=== PATIENT | male | born 1950 | race Caucasian/White ===

== ENCOUNTER 2017-10-03 10:00 | Inpatient (IN) ==
[2017-10-03] MEDS ORDERED: Ipratropium/Albuterol Neb 3 ML IH ONE (10:19)
[2017-10-03] MEDS ORDERED: methylPREDNISolone 125 MG/2 ML VIAL IVP ONE (10:19)
[2017-10-03 10:41] LABS: Basophils % 0.3 %; Eosinophils # 1.4 K/mcL (0.0-0.6); Hematocrit 40.2 % (37.5-50.1); Hemoglobin 12.6 g/dL (12.9-16.9); Immature Granulocytes % 0.3 % (0-4); Lymphocytes # 0.7 K/mcL (0.6-4.6); Lymphocytes % 6.8 %; Mean Corpuscular HGB Conc 31.3 g/dL (31.6-35.5); Mean Corpuscular Hemoglobin 26.6 pg (28.0-33.3); Mean Platelet Volume 10.9 fL (9.4-12.4); Monocytes # 0.7 K/mcL (0.0-1.3); Monocytes % 6.6 %; Neutrophils # 7.8 K/mcL (1.6-8.9); Platelet Count 232 K/mcL (140-400); Red Blood Count 4.73 M/mcL (4.19-5.50); Red Cell Distribution Width 14.4 % (11.5-14.5)
--- NOTE | 2017-10-03 10:41 | Emergency Department Note ---
Disposition Clinical Impression: Acute exacerbation of chronic obstructive airways disease Disposition: Admitted As Inpatient Condition: Fair Referrals: Addy Gómez DO [Partnered Physician] - Forms: ED Satisfaction Letter Time of Disposition: 11:39 [facility] - General Chief Complaint: ED Shortness of Breath/Dyspnea Stated Complaint: NADIA Time Seen by Provider: 10/03/17 10:02 Source: patient Mode of arrival: ambulatory Limitations: no limitations Nursing Notes Reviewed: Yes Vital Signs Reviewed: Yes - History of Present Illness 67-year-old male presented to the ED with difficulty in breathing. Patient states he does have a history of COPD he is always on 2 L of oxygen has never had B and abated he is chronically on 5 mg of steroid. And recently finished a 3 day course of azithromycin. He is currently being worked up by his bakery demonstrator and is sent for an MRI here soon to evaluate for a pulmonary nodule. He sees Dr. Ross. He says this feels like a COPD exacerbation. He has had them before. He states the shortness of breath started last night. He states he has not had any fevers production. Does have a hard time catching his breath. He is not having chest pain, headache, blurry vision, abdominal pain, pain with urination, changes in bowel movements, pain going down the arms or legs or any numbness. Patient otherwise having no complaints. He states he has no leg swelling he has never had any blood clots states he has not had any long car rides or long plane rides or recent hormone use or malignancies. Patient states he did use his nebulizers at home which did help for a little bit only about 30 minutes and he had a hard time breathing in. He said normally lasts a little bit longer. - Related Data Allergies Allergy/AdvReac Type Severity Reaction Status Date / Time atorvastatin [From Lipitor] AdvReac See Verified 10/03/17 11:20 Comments Review of Systems: 10 point review of systems done and negative unless otherwise stated in history of present illness. All systems ED: reviewed and negative except as stated. Review of Systems: As Per HPI Past Medical History - Past Medical History Attestation: Yes The following information was validated with the patient. Medical history: Reports: COPD, GERD, hyperlipidemia, hypertension, RA, other Surgical history: Reports: orthopedic, other, other (Hemorrhoidectomy) Psychiatric history: Reports: no psych history - Social History Smoking Status: Former smoker Smokeless Tobacco Status: No Alcohol use: Reports: occasionally Drug use: Reports: none Physical Exam - General Limitations: no limitations General appearance: alert, in no apparent distress - Head Head exam: atraumatic, normocephalic, normal inspection - Eye Eye exam: Present: normal appearance, PERRL, EOMI - ENT ENT exam: normal exam, normal oropharynx, mucous membranes moist - Neck Neck exam: Present: normal inspection, full ROM, trachea midline - Chest Chest inspection: Present: normal inspection, symmetric chest wall rise - Respiratory Respiratory exam: Present: wheezes (Bilaterally in upper and lower.). Absent: respiratory distress, stridor, accessory muscle use, prolonged expiratory phase - Cardiovascular Cardiovascular exam: Present: regular rate, normal rhythm, normal heart sounds - Abdominal Exam Abdominal exam: Present: soft, Non-Tender. Absent: tenderness, distention, guarding, rebound, rigidity - Extremities Exam Extremities exam: Present: normal inspection, full ROM. Absent: tenderness, pedal edema - Expanded Lower Extremity Exam Neurovascular/Tendon exam: Present: normal capillary refill. Absent: pulse deficit, motor deficit, sensory deficit, tendon deficit Gait: observed and normal - Back Exam Back exam: Present: normal inspection, full ROM. Absent: tenderness, CVA tenderness (R), CVA tenderness (L) - Neurological Exam Neurological exam: Present: alert, oriented X3 - Skin Skin exam: Present: warm, dry, intact, normal color Course Course Narrative: 67-year-old male presents to the ED was possible COPD exacerbation here with difficulty in breathing. Will get CBC, BMP, lactate with time lactate, troponin , EKG, chest x-ray. We will give him a triple DuoNeb treatment as well as Cipro Medrol. Patient is okay with this plan. Disposition will be pending the patient's response to medications. Vital Signs Temperature 98.1 F 10/03/17 10:05 Pulse Rate 98 10/03/17 10:05 Respiratory Rate 20 10/03/17 10:05 Blood Pressure 174/99 10/03/17 10:05 O2 Sat by Pulse Oximetry 95 10/03/17 10:05 Temperature 98.1 F 10/03/17 10:05 Pulse Rate 93 10/03/17 11:19 Respiratory Rate 14 10/03/17 11:19 Blood Pressure 170/94 10/03/17 11:19 O2 Sat by Pulse Oximetry 98 10/03/17 11:19 Oxygen Delivery Oxygen Delivery Nasal Cannula Shortness of Breath/Dyspnea - [facility] Narrative Medical decision making narrative: 67-year-old male presents to the ED complaining of shortness of breath. Patient does have history of COPD and sees Dr. Ross he has been on a recent antibiotic regimen recently finished that he is chronically on 5 mg of prednisone. He says the shortness of breath started yesterday. He is chronically on 2 L of oxygen at home at night. Not during the day. He says shortness breath getting worse where he now needs all day. He states he is having no chest pain or any other symptoms. We did do a basic cardiac and pulmonary workup. Everything came back negative. Chest x-ray had no acute changes. We did give him 125 of Solu-Medrol as well as triple DuoNeb treatment. This did mildly help with his breathing. Patient does need to be admitted for further evaluation. So we admitted patient to Dr. Smith who agreed to accept the patient. We also called his bakery demonstrator and let them know and they asked for a pulmonology consult as they will follow-up with the hospitalist. The patient is admitted to the hospitalist service in stable condition. Chest X-Ray 10/03/17 10:19 IMPRESSION: Mild prominence of the interstitial markings which could be in part chronic. Mild superimposed interstitial edema cannot be entirely excluded. D/ / 10/03/2017 10:38:22 Alessandra Hinton MD / Dee Siddiqui Interpreting Provider: Alessandra Hinton MD - Medical Records Medical records reviewed: Yes I reviewed the patient's medical records. - Lab Data Lab results reviewed: Yes I reviewed the patient's lab results. Result diagrams: 10/03/17 10:28 10/03/17 10:28 Lab Results 10/03/17 10/03/17 10/03/17 Range/Units 10:28 10:28 10:28 WBC 10.6 (4.3-11.1) K/mcL RBC 4.73 (4.19-5.50) M/mcL Hgb 12.6 L (12.9-16.9) g/dL Hct 40.2 (37.5-50.1) % MCV 85.0 (83.0-100.0) fL MCH 26.6 L (28.0-33.3) pg MCHC 31.3 L (31.6-35.5) g/dL RDW 14.4 (11.5-14.5) % Plt Count 232 (140-400) K/mcL MPV 10.9 (9.4-12.4) fL Immature Gran % 0.3 (0-4) % Seg Neutrophils % 73.0 % Lymphocytes % 6.8 % Monocytes % 6.6 % Eosinophils % 13.0 % Basophils % 0.3 % Neutrophils # 7.8 (1.6-8.9) K/mcL Lymphocytes # 0.7 (0.6-4.6) K/mcL Monocytes # 0.7 (0.0-1.3) K/mcL Eosinophils # 1.4 H (0.0-0.6) K/mcL Basophils # 0.0 (0.0-0.2) K/mcL Sodium 138 (136-145) mEq/L Potassium 3.9 (3.5-4.5) mEq/L Chloride 104 (98-109) mEq/L Carbon Dioxide 26 (19-29) mEq/L BUN 11 (8-26) mg/dL Creatinine 0.89 (0.72-1.25) mg/dL Est GFR ( Amer) > 60 (> 60) Est GFR (Non-Af Amer) > 60 (> 60) BUN/Creatinine Ratio 12 (6-26) Glucose 101 H (70-99) mg/dL Calculated Osmolality 286 (280-300) Lactic Acid (0.5-2.2) mmol/L Calcium 9.4 (8.6-10.8) mg/dL Troponin I 0.02 (0-0.03) ng/mL B-Natriuretic Peptide (0-100) pg/mL 10/03/17 10/03/17 Range/Units 10:28 10:28 WBC (4.3-11.1) K/mcL RBC (4.19-5.50) M/mcL Hgb (12.9-16.9) g/dL Hct (37.5-50.1) % MCV (83.0-100.0) fL MCH (28.0-33.3) pg MCHC (31.6-35.5) g/dL RDW (11.5-14.5) % Plt Count (140-400) K/mcL MPV (9.4-12.4) fL Immature Gran % (0-4) % Seg Neutrophils % % Lymphocytes % % Monocytes % % Eosinophils % % Basophils % % Neutrophils # (1.6-8.9) K/mcL Lymphocytes # (0.6-4.6) K/mcL Monocytes # (0.0-1.3) K/mcL Eosinophils # (0.0-0.6) K/mcL Basophils # (0.0-0.2) K/mcL Sodium (136-145) mEq/L Potassium (3.5-4.5) mEq/L Chloride (98-109) mEq/L Carbon Dioxide (19-29) mEq/L BUN (8-26) mg/dL Creatinine (0.72-1.25) mg/dL Est GFR ( Amer) (> 60) Est GFR (Non-Af Amer) (> 60) BUN/Creatinine Ratio (6-26) Glucose (70-99) mg/dL Calculated Osmolality (280-300) Lactic Acid 1.3 (0.5-2.2) mmol/L Calcium (8.6-10.8) mg/dL Troponin I (0-0.03) ng/mL B-Natriuretic Peptide 41 (0-100) pg/mL - Radiology Data Radiology results reviewed: Yes I reviewed the patient's radiology results. - EKG Data EKG attestation: Yes I reviewed and interpreted this EKG. EKG results narrative: EKG done at 1016 reviewed by myself and the attending shows normal sinus rhythm at a rate of 88, ID interval 128, QRS 80, QTC 398 with a normal axis. There is no acute ST changes, T-wave abnormalities, there is sign of left ventricular hypertrophy, but no heart strain. No signs of any heart block. No signs of WPW /Brugada syndrome. This is unchanged when compared with old EKG done 09/25/17. Attestation Statement - Attestation Attestation: I examined this patient and my medical decision-making was reviewed with the Resident Physician. I agree with the documented findings, disposition and treatment plan as described except to the extent set forth below. Patient presents to the ED complaining of difficulty breathing. Onset yesterday. Cough productive of white sputum. Pain is across the top of his chest. Patient has a history of idiopathic bone or fibrosis and COPD. He has recently been on a course of 30 days of azithromycin. He is on daily steroids. They are attempting to schedule him for an outpatient MRI to evaluate his symptoms to see if there are more related to the COPD or the IPF. On examination he is visibly dyspneic with some accessory muscle use and tachypnea. Lungs with diffuse rhonchi and wheezing. Plan. Nebs and steroids. He is satting well on 2 L of oxygen. Cardiac workup and admission.
[2017-10-03 10:50] LABS: BUN/Creatinine Ratio 12 (6-26); Blood Urea Nitrogen 11 mg/dL (8-26); Calcium 9.4 mg/dL (8.6-10.8); Carbon Dioxide 26 mEq/L (19-29); Chloride 104 mEq/L (98-109); Glucose 101 mg/dL (70-99); Osmolality,Calculated 286 (280-300); Potassium 3.9 mEq/L (3.5-4.5); Sodium 138 mEq/L (136-145); eGFR For African Americans > 60 (> 60); eGFR For Non-African Americans > 60 (> 60)
[2017-10-03] MEDS ORDERED: Ondansetron 4 MG/2 ML VIAL IVP PRN (14:39)
[2017-10-03] MEDS ORDERED: Naloxone 0.4 MG/ML INJ IVP PRN (14:39)
[2017-10-03] MEDS ORDERED: traMADol 50 MG TABLET PO PRN (14:45)
[2017-10-03] MEDS ORDERED: *HR* OxyCODONE/APAP 5/325 TABLET PO PRN ×2 (14:45→15:41)
--- NOTE | 2017-10-03 15:01 | Internal Med History&Physical ---
<Alon Wetzel - Last Filed: 10/03/17 16:28> Date of Encounter: 10/03/17 Time of Encounter: 13:30 Assessment and Plan (1) Acute exacerbation of chronic obstructive airways disease Current visit: Yes Status: Acute Acute exacerbation of COPD. 40 mg Solumedrol IVP Q8 daily. Continue pts. Azithromycin PO daily as ordered by Dr. Luis for flare-up dx. Supplemental O2 w/titration and SpO2 monitoring. DuoNebs Q4 HR scheduled. Continue pts. Tessalon 200 mg TID for cough. Pulmonology consult ordered in ED. (2) IPF (idiopathic pulmonary fibrosis) Current visit: Yes Status: Chronic Hx of chronic IPF. Pt. is followed by Dr. Luis. IPF status currently complicated by acute exacerbation of COPD. CT of the chest w/contrast ordered to assess for pulmonary nodule. Continue acetylcysteine, Esbriet, and hold the patient's by mouth prednisone 5 mg daily and administer Solu-Medrol 40 mg every 8 hours. Pulmonology consult ordered in ED. (3) GERD (gastroesophageal reflux disease) Current visit: Yes Status: Chronic Hx of chronic GERD. IVP Zofran Q6 PRN. Continue pts. Prilosec. Qualifiers: Esophagitis presence: esophagitis presence not specified Qualified Code(s) : K21.9 - Gastro-esophageal reflux disease without esophagitis (4) HLD (hyperlipidemia) Current visit: Yes Status: Chronic Hx of chronic HLD. Lipid panel in a.m. labs. Pt. states he is allergic to Lipitor but takes low dose of Crestor daily. Will administer 10 mg Crestor daily. Qualifiers: Hyperlipidemia type: pure hypercholesterolemia Qualified Code(s): E78.00 - Pure hypercholesterolemia, unspecified; E78.0 - Pure hypercholesterolemia (5) HTN (hypertension) Current visit: Yes Status: Chronic Hx of chronic HTN with borderline readings. Pt. does not currently take HTN medication. Will monitor VS and administer lisinopril if pt. becomes hypertensive. Qualifiers: Hypertension type: essential hypertension Qualified Code(s): I10 - Essential (primary) hypertension (6) Rheumatoid arthritis Current visit: Yes Status: Chronic Hx of chronic RA. Continue pts. percocet and tramadol for pain management. Pt. reports taking Orencia injections weekly and states last injection was on Monday. Continue sulfasalazine. Qualifiers: Rheumatoid arthritis location: multiple sites Rheumatoid factor presence: unspecified presence Qualified Code(s): M06.9 - Rheumatoid arthritis, unspecified (7) DVT prophylaxis Current visit: Yes Status: Acute Lovenox 40 mg 0600 daily for DVT prophylaxis. Monitor pt. for signs of bleeding. Internal Medicine - H&P: HPI Chief complaint: SOB/Dyspnea Admitted From: Emergency Dept Plans for Post Hospital Care: Home History of present illness: Mr. Yoder is a 67 year old male with medical hx of COPD, idiopathic pulmonary fibrosis, GERD, HLD, HTN, and RA presents from the ED with chief complaint of shortness of breath and dyspnea which began yesterday and became worse. Patient states he was seen September 22 for flareup and was placed on 30 days of azithromycin for infection coverage and is currently been compliant with his abx. He states that using his DuoNeb at home helped somewhat and that he uses home oxygen. Patient feels this is an exacerbation of his COPD based on the sx he has had before. Patient reports fever but denies recent illness, chills, nausea, vomiting, changes in vision, chest pain, palpitations, unusual bleeding , headache, abdominal pain, diarrhea, constipation, dizziness, lightheadedness, pre-syncope, or syncope. Past Med Surg Social Fam HX - Past Medical History Source: patient, old records reviewed Medical history: COPD, GERD, hyperlipidemia, hypertension, RA, other Psychiatric history: no psych history - Past Surgical History Surgical History: orthopedic, other (Left knee), other (Right carpal tunnel) - Social History Smoking Status: Former smoker Packs per day: 1 PPD - Reports quitting in 1998 Smokeless Tobacco Status: No Alcohol use: none Drug use: none Occupational status: employed Current living situation: Home, With Family Activity Level: Independent ambulation, Very active Recent Out of Country Travel Within the Last 8 Weeks: No Exposure or Possible Exposure to Illness During Travel: No - Family History Father Race: Family Member Ethnicity: Non- Living Status: Age at : 64 Cause of : Pancreatic cancer Hx Family Cardiac Disorders: Yes (HTN, CAD) Hx Family Cancer: Yes (Pancreatic) Mother Race: Family Member Ethnicity: Non- Living Status: Age at : 63 Cause of : CHF Hx Family Cardiac Disorders: Yes (CHF, Strokes) Brother Race: Family Member Ethnicity: Non- Living Status: Still Living Hx Family Cardiac Disorders: Yes (HTN) Sister Race: Family Member Ethnicity: Non- Living Status: Age at : 46 Cause of : Cancer (Type unknown) Hx Family Cancer: Yes Internal Medicine - H&P: Meds Abatacept [Orencia] 125 mg SQ QWEEK 10/03/17 [History] Acetylcysteine [Q-Jxycnf-y-Cysteine] 1,200 mg PO DAILY 10/03/17 [History] Albuterol Sulfate [Ventolin Hfa] 2 puff IH Q6H 10/03/17 [History] Azithromycin [Zithromax] 250 mg PO DAILY 10/03/17 [History] Benzonatate [Tessalon] 200 mg PO TID 10/03/17 [History] Celecoxib [Celebrex] 200 mg PO DAILY 10/03/17 [History] Cyclosporine [Restasis] 1 drop OP BID 10/03/17 [History] Latanoprost [Xalatan] 1 drop OP HS 10/03/17 [History] Omeprazole [PriLOSEC] 40 mg PO BID 10/03/17 [History] Oxycodone HCl/Acetaminophen [Percocet 5-325 mg Tablet] 1 tab PO DAILY PRN [History] Pirfenidone [Esbriet] 801 mg PO TID 10/03/17 [History] Roflumilast [Daliresp] 500 mcg PO DAILY 10/03/17 [History] Sulfasalazine [Azulfidine] 1,000 mg PO BID 10/03/17 [History] Tramadol HCl [Ultram] 50 mg PO BID PRN 10/03/17 [History] Umeclidinium Brm/Vilanterol Tr [Anoro Ellipta 62.5-25 Mcg INH] 1 puff IH DAILY 10/03/17 [History] predniSONE [PredniSONE] 5 mg PO DAILY 10/03/17 [History] 3 Allergy/AdvReac Type Severity Reaction Status Date / Time atorvastatin [From Lipitor] AdvReac See Verified 10/03/17 11:20 Comments All Systems PM: A 10-system review of systems was performed and is negative for pertinent findings except as documented above in the HPI. - Constitutional Constitutional: as per HPI, fever(s), no chills, no night sweats - EENT Eyes: no change in vision, no discharge, no pain, no photophobia Ears: no ear discharge, no ear pain, no tinnitus Nose, mouth and throat: no dysphagia, no nasal discharge, no neck pain, no sore throat - Breasts Breasts: as per HPI - Cardiovascular Cardiovascular ROS IM: as per HPI, dyspnea, dyspnea on exertion, no chest pain, no diaphoresis, no lightheadedness, no palpitations, no syncope - Respiratory Respiratory: as per HPI, cough, dyspnea, dyspnea on exertion, wheezing, pain on inspiration, chest congestion - Gastrointestinal Gastrointestinal: no abdominal pain, no diarrhea, no hematemesis, no hematochezia, no melena, no nausea, no vomiting - Genitourinary Genitourinary ROS male: as per HPI - Musculoskeletal Musculoskeletal ROS IM: no numbness, no tingling - Integumentary Integumentary IM: no rash, no unusual bruising - Neurological Neurological ROS: no confusion, no convulsions, no focal weakness, no numbness, no tingling, no tremor(s) - Psychiatric Psychiatric: as per HPI - Endocrine Endocrine IM: as per HPI - Hematologic/Lymphatic Hematologic/Lymphatic: no easy bruising - Allergic/Immunologic Allergic/Immunologic: as per HPI - Constitutional Vitals: Temp Pulse Resp BP Pulse Ox 98.3 F 89 16 172/88 96 10/03/17 14:53 10/03/17 14:53 10/03/17 14:53 10/03/17 14:53 10/03/17 14:53 General appearance: Present: cooperative, mild distress (Respiratory), A&O X 3, pleasant, obese, answers questions appropriately - Head Head exam: Present: atraumatic, normal inspection, normocephalic - Eye Eye exam: Present: PERRL, conjuntiva pink, sclera anicteric Pupils: Present: PERRL - ENT ENT exam: Present: normal exam, normal external ear exam - Neck Neck exam general surgery: Present: normal inspection, supple, trachea midline. Absent: lymphadenopathy - Respiratory Respiratory exam: Present: accessory muscle use, wheezes, tachypnea - Cardiovascular Cardiovascular exam: Present: RRR, +S1, +S2. Absent: diastolic murmur, gallop, rubs, systolic murmur - GI/Abdominal GI/Abdominal exam: Present: normal bowel sounds, soft, no peritoneal signs. Absent: distended, tenderness - Rectal Rectal exam: Present: deferred - Additional comments: exam deferred. - Extremities Exam Extremities exam: Present: warm, radial pulses palpable and symmetrical. Absent : calf tenderness, cyanotic, pedal edema - Back Exam Back exam: Present: normal inspection - Neurological Exam Neurological exam: Present: CN II-XII intact, oriented X3, no focal deficits. Absent: pronater drift, facial droop, speech deficit - Psychiatric Psychiatric exam: Present: normal affect, normal mood - Skin Skin exam: Present: dry, intact Internal Med - H&P Results - Labs CBC & Chem 7: 10/03/17 10:28 10/03/17 10:28 - EKG Data EKG shows normal: sinus rhythm - EKG Data Prior EKG available for review: yes EKG comments: 10/03/17 15:15 EKG dated 09/25/17 shows sinus rhythm. EKG dated 10/03/17 shows sinus rhythm with possible left atrial enlargement and possible right ventricular conduction delay. - Diagnostic Studies Chest x-ray Additional comments: Impressions Chest X-Ray 10/03/17 10:19 IMPRESSION: Mild prominence of the interstitial markings which could be in part chronic. Mild superimposed interstitial edema cannot be entirely excluded. D/ / 10/03/2017 10:38:22 Alessandra Hinton MD / Dee Siddiqui Interpreting Provider: Alessandra Hinton MD <Augusto Smith P - Last Filed: 10/03/17 18:45> Date of Encounter: 10/03/17 Internal Medicine - H&P: HPI History of present illness: Mr. Yoder is a 67 year old male All Systems PM: A 10-system review of systems was performed and is negative for pertinent findings except as documented above in the HPI. - Constitutional Vitals: Temp Pulse Resp BP Pulse Ox 98.3 F 89 22 172/88 93 10/03/17 14:53 10/03/17 14:53 10/03/17 16:02 10/03/17 14:53 10/03/17 16:02 Internal Med - H&P Results - Labs CBC & Chem 7: 10/03/17 10:28 10/03/17 10:28 - Attending Attestation I examined this patient and my medical decision-making was reviewed with the Resident Physician/MANUFACTURING ACCOUNTANT. I agree with the documented findings, disposition and treatment plan as described except to the extent set forth below. Case seen and examined. Chart reviewed. 67-year-old male. Known to have a pulmonary fibrosis/COPD. Follow-up with pulmonology here. And patient was evaluated last office visit, pulmonology, they recommended hospitalization. Patient refused that time and now hospitalized for exacerbation of COPD. Antibiotics/steroids/bronchodilators. We will get pulmonary to evaluate. We will follow the recommendations of pulmonary.
[2017-10-03] MEDS: Benzonatate 100 MG CAPSULE PO SCH ×2 (15:56→21:55)
[2017-10-03] MEDS ORDERED: MethylPREDNISolone 40 MG/ML VIAL IVP SCH (16:00)
[2017-10-03] MEDS: Ipratropium/Albuterol Neb 3 ML IH SCH ×3 (16:02→23:25)
--- NOTE | 2017-10-03 17:12 | Pulmonology Consult Note ---
Date of Encounter: 10/03/17 Time of Encounter: 17:00 Assessment and Plan (1) Acute exacerbation of chronic obstructive airways disease Current Visit: Yes Status: Acute Patient has been having significant worsening of his symptoms and I have discussed with him as outpatient most likely will need to open lung biopsy to confirm diagnosis of idiopathic pulmonary fibrosis versus connective tissue disease interstitial lung disease. I will repeat his high-resolution CT scan which was ordered as outpatient, but it was not done to help to make that decision. I am concerned about exacerbation of his interstitial lung disease as well. We will increase his systemic steroid and start him on Symbicort and continue bronchodilators. I have discussed this with the patient and his family at the bedside. Thank you for the consultation and we will continue to follow up. (2) IPF (idiopathic pulmonary fibrosis) Current Visit: Yes Status: Chronic (3) Rheumatoid arthritis Current Visit: Yes Status: Chronic Qualifiers: Rheumatoid arthritis location: multiple sites Rheumatoid factor presence: unspecified presence Qualified Code(s): M06.9 - Rheumatoid arthritis, unspecified History of Present Illness Consult date: 10/03/17 Requesting physician: Alon Wetzel Reason for consult: COPD Chief complaint: Shortness of breath History of present illness: This is a pleasant 67-year-old male with history of interstitial lung disease and also COPD. Patient was seen as outpatient recently and he was advised to be treated as an inpatient because of his worsening course productive cough, wheezing, dyspnea. Patient was treated as outpatient but the symptoms is worse in and he came to emergency room. Patient is feeling slightly better after he has received neb treatment. He denies any fever or chills. He is being treated for idiopathic pulmonary fibrosis. Patient also has been on systemic steroid. The patient has history of rheumatoid arthritis as well. He denies any other symptoms at this time other than low-grade fever. She denies any sick contact. Past Med Surg Social Fam HX - Past Medical History Medical history: COPD, GERD, hyperlipidemia, hypertension, RA, other Psychiatric history: no psych history - Past Surgical History Surgical History: orthopedic, other (Left knee), other (Right carpal tunnel) - Social History Smoking Status: Former smoker Packs per day: 1 PPD - Reports quitting in 1998 Smokeless Tobacco Status: No Alcohol use: none Drug use: none - Family History Father Race: Family Member Ethnicity: Non- Living Status: Age at : 64 Cause of : Pancreatic cancer Hx Family Cardiac Disorders: Yes (HTN, CAD) Hx Family Respiratory Disorders: No Hx Family Cancer: Yes (Pancreatic) Hx Family GI Disorders: Yes (grandfather) Hx Family Endocrine Disorder: No Hx Family Neuromuscular Disorders: No Hx Family Neurologic Disorders: Yes (mother) Hx Family HEENT Disorders: No Hx Family Autoimmune Disorders: Yes (self, grandfather) Mother Race: Family Member Ethnicity: Non- Living Status: Age at : 63 Cause of : CHF Hx Family Cardiac Disorders: Yes (CHF, Strokes) Brother Race: Family Member Ethnicity: Non- Living Status: Still Living Hx Family Cardiac Disorders: Yes (HTN) Sister Race: Family Member Ethnicity: Non- Living Status: Age at : 46 Cause of : Cancer (Type unknown) Hx Family Cancer: Yes Medications and Allergies Abatacept [Orencia] 125 mg SQ QWEEK 10/03/17 [History] Acetylcysteine [J-Keunkc-s-Cysteine] 1,200 mg PO DAILY 10/03/17 [History] Albuterol Sulfate [Ventolin Hfa] 2 puff IH Q6H 10/03/17 [History] Azithromycin [Zithromax] 250 mg PO DAILY 10/03/17 [History] Benzonatate [Tessalon] 200 mg PO TID 10/03/17 [History] Celecoxib [Celebrex] 200 mg PO DAILY 10/03/17 [History] Cyclosporine [Restasis] 1 drop OP BID 10/03/17 [History] Latanoprost [Xalatan] 1 drop OP HS 10/03/17 [History] Omeprazole [PriLOSEC] 40 mg PO BID 10/03/17 [History] Oxycodone HCl/Acetaminophen [Percocet 5-325 mg Tablet] 1 tab PO DAILY PRN [History] Pirfenidone [Esbriet] 801 mg PO TID 10/03/17 [History] Roflumilast [Daliresp] 500 mcg PO DAILY 10/03/17 [History] Sulfasalazine [Azulfidine] 1,000 mg PO BID 10/03/17 [History] Tramadol HCl [Ultram] 50 mg PO BID PRN 10/03/17 [History] Umeclidinium Brm/Vilanterol Tr [Anoro Ellipta 62.5-25 Mcg INH] 1 puff IH DAILY 10/03/17 [History] predniSONE [PredniSONE] 5 mg PO DAILY 10/03/17 [History] 3 Allergy/AdvReac Type Severity Reaction Status Date / Time atorvastatin [From Lipitor] AdvReac See Verified 10/03/17 11:20 Comments All Systems: A 10-system review of systems was performed and is negative for pertinent findings except as documented above in the HPI. Physical Examination Vital Signs: Vital Signs, Last 4 Hours Temp Pulse Resp BP Pulse Ox 10/03/17 16:02 22 93 10/03/17 14:53 98.3 F 89 18 172/88 96 General appearance: no acute distress Eyes: nonicteric ENT: oropharynx moist Mallampati (class): 3 Neck: supple Effort: mildly labored Inspection: hyperextended Auscultation: bilateral: wheezes Percussion: bilateral: not dull Cardiovascular: regular rate and rhythm Gastrointestinal: normoactive bowel sounds, non-distended Extremities: no cyanosis, other (Early clubbing.) normal mental status, non-focal exam mood appropriate Results - Laboratory Findings CBC and BMP: 10/03/17 10:28 10/03/17 10:28 Abnormal lab findings: Abnormal lab results Hgb 12.6 g/dL (12.9-16.9) L 10/03/17 10:28 MCH 26.6 pg (28.0-33.3) L 10/03/17 10:28 MCHC 31.3 g/dL (31.6-35.5) L 10/03/17 10:28 Eosinophils # 1.4 K/mcL (0.0-0.6) H 10/03/17 10:28 Glucose 101 mg/dL (70-99) H 10/03/17 10:28 - Diagnostic Findings Chest x-ray: report reviewed, image reviewed - Clinical Findings Intake & Output: Intake & Output 10/03/17 10/03/17 10/03/17 07:59 15:59 23:59 Intake Total 0 / 0 240 / 240 Output Total 0 / 0 400 / 400 Balance 0 / 0 -160 / -160 Weight 85.548 kg Consult Discharge Plan - Plan Referrals: Addy Gómez DO [Primary Care Provider] -
[2017-10-03] MEDS ORDERED: methylPREDNISolone 125 MG/2 ML VIAL IM SCH (18:00)
[2017-10-03] MEDS: Budesonide/Formoterol 160/4.5 MDI IH SCH (20:10)
[2017-10-03] MEDS ORDERED: Cyclosporine [Restasis] 1 DROP OP SCH (21:00)
[2017-10-03] MEDS ORDERED: PIRFENIDONE PO SCH (21:00)
[2017-10-03] MEDS: sulfaSALAzine 500 MG TABLET PO SCH (21:55)
[2017-10-03] MEDS: Latanoprost 2.5 ML BOTTLE RIGHT EYE SCH (21:58)
[2017-10-04] MEDS: Chloraseptic Spray 177 ML BOTTLE MM PRN ×3 (00:23→20:54)
[2017-10-04] MEDS: methylPREDNISolone 125 MG/2 ML VIAL IVP SCH ×5 (00:25→23:42)
[2017-10-04] MEDS: Ipratropium/Albuterol Neb 3 ML IH SCH ×4 (03:59→22:57)
[2017-10-04] MEDS: *HR* Enoxaparin 40 MG/0.4 ML SYRINGE SQ SCH (05:02)
[2017-10-04 05:15] LABS: Hematocrit 37.9 % (37.5-50.1); Hemoglobin 11.9 g/dL (12.9-16.9); INR 1.1; Immature Granulocytes % 0.4 % (0-4); Lymphocytes # 0.4 K/mcL (0.6-4.6); Lymphocytes % 2.7 %; Mean Corpuscular HGB Conc 31.4 g/dL (31.6-35.5); Mean Corpuscular Hemoglobin 26.6 pg (28.0-33.3); Mean Corpuscular Volume 84.6 fL (83.0-100.0); Mean Platelet Volume 10.9 fL (9.4-12.4); Monocytes # 0.2 K/mcL (0.0-1.3); Monocytes % 1.3 %; Neutrophils # 13.5 K/mcL (1.6-8.9); Platelet Count 222 K/mcL (140-400); Prothrombin Time 11.5 Seconds (9.4-12.1); Red Blood Count 4.48 M/mcL (4.19-5.50); Red Cell Distribution Width 14.7 % (11.5-14.5); Segmented Neutrophils % 95.6 %
[2017-10-04 05:18] LABS: Activated Partial Thrombo Time 27.9 Seconds (26.0-36.0)
[2017-10-04 05:28] LABS: Alanine Aminotransferase 19 Units/L (0-55); Albumin 3.3 g/dL (3.5-5.0); Albumin/Globulin Ratio 0.9 (1.1-2.2); Alkaline Phosphatase 79 Units/L (38-126); Aspartate Amino Transferase 27 Units/L (5-34); BUN/Creatinine Ratio 16 (6-26); Bilirubin,Total 0.4 mg/dL (0.2-1.2); Blood Urea Nitrogen 14 mg/dL (8-26); Calcium 9.6 mg/dL (8.6-10.8); Carbon Dioxide 26 mEq/L (19-29); Chloride 104 mEq/L (98-109); Chol/HDL Ratio 2.9 (0-4.9); Cholesterol 195 mg/dL (< 200); Globulin 3.8 g/dL (2.4-3.5); Glucose 133 mg/dL (70-99); HDL Cholesterol 68 mg/dL (40-59); LDL Cholesterol,Calculated 119 mg/dL (0-99); Magnesium 1.9 mg/dL (1.6-2.6); Osmolality,Calculated 286 (280-300); Sodium 137 mEq/L (136-145); Total Protein 7.1 g/dL (6.0-8.3); Triglycerides 38 mg/dL (< 150); eGFR For African Americans > 60 (> 60); eGFR For Non-African Americans > 60 (> 60)
[2017-10-04 05:37] LABS: Hemoglobin A1C 5.4 %
[2017-10-04] MEDS: Budesonide/Formoterol 160/4.5 MDI IH SCH ×2 (08:03→22:57)
[2017-10-04] MEDS ORDERED: Albuterol 2.5 MG/3 ML NEBULIZER IH PRN (08:37)
--- NOTE | 2017-10-04 08:48 | Pulmonology Progress Note ---
Date of Encounter: 10/04/17 Time of Encounter: 08:25 Assessment and Plan (1) Acute exacerbation of chronic obstructive airways disease Current Visit: Yes Status: Acute Overall patient slightly improving on current treatment and to continue systemic steroid as well as bronchodilators, however due to the side effects mainly tremor, we will decrease frequency of the nebulizer. (2) IPF (idiopathic pulmonary fibrosis) Current Visit: Yes Status: Suspected This is very complicated situation and his most recent CT chest is not in favor of IPF/UIP. They had discussion with the patient about [place] lung biopsy when he is more stable and he is in agreement. I offered him to be done at [place], but he prefer to go to [place]. We will arrange that as outpatient for him. (3) Rheumatoid arthritis Current Visit: Yes Status: Chronic Qualifiers: Rheumatoid arthritis location: multiple sites Rheumatoid factor presence: unspecified presence Qualified Code(s): M06.9 - Rheumatoid arthritis, unspecified Subjective Principal diagnosis: Shortness of breath Interval history: Patient is feeling better, however he still having problems with his breathing and not at his baseline. Patient complaining of shakiness. Objective PUL Vital signs: Last Vital Signs Temp 98.1 F 10/04/17 06:59 Pulse 88 10/04/17 06:59 Resp 16 10/04/17 08:08 BP 141/75 10/04/17 06:59 Pulse Ox 92 10/04/17 08:08 General appearance: no acute distress Eyes: nonicteric ENT: oropharynx moist Mallampati (class): 3 Neck: supple Effort: mildly labored Auscultation: bilateral: wheezes Percussion: bilateral: not dull Cardiovascular: regular rate and rhythm Gastrointestinal: normoactive bowel sounds, non-distended Extremities: no cyanosis normal mental status, non-focal exam mood appropriate Results - Laboratory Findings CBC and BMP: 10/04/17 04:52 10/04/17 04:52 PT/INR, D-dimer PT 11.5 Seconds (9.4-12.1) 10/04/17 04:52 Abnormal lab findings: Abnormal lab results WBC 14.1 K/mcL (4.3-11.1) H 10/04/17 04:52 Hgb 11.9 g/dL (12.9-16.9) L 10/04/17 04:52 MCH 26.6 pg (28.0-33.3) L 10/04/17 04:52 MCHC 31.4 g/dL (31.6-35.5) L 10/04/17 04:52 RDW 14.7 % (11.5-14.5) H 10/04/17 04:52 Neutrophils # 13.5 K/mcL (1.6-8.9) H 10/04/17 04:52 Lymphocytes # 0.4 K/mcL (0.6-4.6) L 10/04/17 04:52 Glucose 133 mg/dL (70-99) H 10/04/17 04:52 Albumin 3.3 g/dL (3.5-5.0) L 10/04/17 04:52 Globulin 3.8 g/dL (2.4-3.5) H 10/04/17 04:52 Albumin/Globulin Ratio 0.9 (1.1-2.2) L 10/04/17 04:52 LDL Cholesterol, Calc 119 mg/dL (0-99) H 10/04/17 04:52 HDL Cholesterol 68 mg/dL (40-59) H 10/04/17 04:52 - Diagnostic Findings CT scan - chest: report reviewed, image reviewed - Clinical Findings Intake & Output: Intake & Output 10/03/17 10/04/17 10/04/17 23:59 07:59 15:59 Intake Total 600 / 600 Output Total 875 / 875 Balance -275 / -275 Consult Discharge Plan - Plan Referrals: Addy Gómez DO [Primary Care Provider] -
[2017-10-04] MEDS ORDERED: (Umeclidinium Brm/Vilanterol Tr [Anoro Ellipta 62.5-2) IH SCH (09:00)
[2017-10-04] MEDS ORDERED: (Roflumilast [Daliresp] 500 MCG) PO SCH (09:00)
[2017-10-04] MEDS: sulfaSALAzine 500 MG TABLET PO SCH ×2 (09:40→20:52)
[2017-10-04] MEDS: Celecoxib 200 MG CAPSULE PO SCH (09:40)
[2017-10-04] MEDS: Azithromycin 250 MG TABLET PO SCH (09:41)
[2017-10-04] MEDS: Benzonatate 100 MG CAPSULE PO SCH ×3 (09:41→20:52)
[2017-10-04] MEDS ORDERED: *HR* OxyCODONE/APAP 5/325 TABLET PO PRN (09:54)
[2017-10-04] MEDS: *HR* Acetylcysteine 20% 600 MG/3 ML ORAL SYRINGE PO SCH (10:45)
[2017-10-04] MEDS: Acetaminophen 325 MG TABLET PO PRN ×2 (10:45→18:55)
--- NOTE | 2017-10-04 12:09 | Internal Med Progress Note ---
Date of Encounter: 10/04/17 Time of Encounter: 10:45 - Assessment and plan (1) Acute exacerbation of chronic obstructive airways disease Current Visit: Yes Status: Acute Assessment and plan: Pulmonology on board and consultation appreciated continue IV steroids, bronchodilator support, O2 supplementation monitor O2 saturation goal O2 sat: 89-92% continue PO abx (2) HTN (hypertension) Current Visit: Yes Status: Chronic Assessment and plan: BP within acceptable range continue home medications Qualifiers: Hypertension type: essential hypertension Qualified Code(s): I10 - Essential (primary) hypertension (3) HLD (hyperlipidemia) Current Visit: Yes Status: Chronic Assessment and plan: continue home medications Qualifiers: Hyperlipidemia type: pure hypercholesterolemia Qualified Code(s): E78.00 - Pure hypercholesterolemia, unspecified; E78.0 - Pure hypercholesterolemia (4) Rheumatoid arthritis Current Visit: Yes Status: Chronic Assessment and plan: continue home medications Qualifiers: Rheumatoid arthritis location: multiple sites Rheumatoid factor presence: unspecified presence Qualified Code(s): M06.9 - Rheumatoid arthritis, unspecified (5) DVT prophylaxis Current Visit: Yes Status: Acute Assessment and plan: Lovenox SQ (6) IPF (idiopathic pulmonary fibrosis) Current Visit: Yes Status: Chronic Assessment and plan: pulmonary on board and outpatient follow up recommended - Subjective Interval history: Patient seen and examined with present at bedside. Patient sitting in bed saturating well on oxygen. Reports of feeling better compared to previous day. Reports of persistent cough, however states it is improved from previous day. - Constitutional Vitals: Temp Pulse Resp BP Pulse Ox 98.1 F 88 16 141/75 92 10/04/17 06:59 10/04/17 06:59 10/04/17 08:08 10/04/17 06:59 10/04/17 08:08 General appearance: Present: cooperative, A&O X 3, pleasant, no acute distress, answers questions appropriately - Head Head exam: Present: atraumatic, normocephalic - Eye Eye exam: Present: conjuntiva pink, sclera anicteric - Respiratory Respiratory exam: Present: decreased breath sounds (bilateral expiratory wheezing). Absent: respiratory distress, wheezes - Cardiovascular Cardiovascular exam: Present: RRR, +S1, +S2. Absent: diastolic murmur, gallop, rubs, systolic murmur - GI/Abdominal GI/Abdominal exam: Present: normal bowel sounds, soft, no peritoneal signs. Absent: distended, tenderness - Extremities Exam Extremities exam: Present: warm, radial pulses palpable and symmetrical. Absent : calf tenderness, pedal edema - Neurological Exam Neurological exam: Present: alert, oriented X3 - Psychiatric Psychiatric exam: Present: normal affect, normal mood Internal Medicine: Result - Labs CBC & Chem 7: 10/04/17 04:52 10/04/17 04:52 Labs: Short CBC 10/04/17 Range/Units 04:52 WBC 14.1 H (4.3-11.1) K/mcL Hgb 11.9 L (12.9-16.9) g/dL Hct 37.9 (37.5-50.1) % Plt Count 222 (140-400) K/mcL Neutrophils # 13.5 H (1.6-8.9) K/mcL BMP 10/04/17 04:52 Sodium 137 Potassium 4.0 Chloride 104 Carbon Dioxide 26 BUN 14 Creatinine 0.85 Glucose 133 H Calcium 9.6 Liver Function 10/04/17 Range/Units 04:52 Total Bilirubin 0.4 (0.2-1.2) mg/dL AST 27 (5-34) Units/L ALT 19 (0-55) Units/L Alkaline Phosphatase 79 (38-126) Units/L Albumin 3.3 L (3.5-5.0) g/dL - ABG Interpretation ABG results: PT/INR, D-dimer PT 11.5 Seconds (9.4-12.1) 10/04/17 04:52 - Impressions Impressions Chest CT 10/03/17 18:00 IMPRESSION: 1. No acute cardiopulmonary disease. 2. Severe diffuse bronchial wall thickening, airway dilatation of the bilateral upper lobes (right greater than left), and nonspecific fine reticular opacities in the periphery, upper lobes greater than lower lobes. The findings are slightly progressed since 2015. Additionally, diffuse airway trapping is identified. Overall, findings are most suggestive of chronic bronchiolitis related to hypersensitivity pneumonitis versus smoking. Findings are not typical in appearance for UIP or NSIP. 3. Large hiatal hernia. D/ / 10/03/2017 19:32:43 Larissa Wiggins MD / dillon Interpreting Provider: Larissa Wiggins MD Consult Discharge Plan - Plan Referrals: Addy Gómez DO [Primary Care Provider] -
[2017-10-04] MEDS: traMADol 50 MG TABLET PO PRN ×2 (13:23→23:41)
--- NOTE | 2017-10-04 19:59 | Electrocardiograph Report ---
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
[2017-10-04] MEDS: Latanoprost 2.5 ML BOTTLE RIGHT EYE SCH (20:53)
[2017-10-04] MEDS ORDERED: 0.9 % Sodium Chloride 1,000 ML IVC SCH (22:15)
[2017-10-05] MEDS ORDERED: Melatonin 3 MG TABLET PO ONE (02:19)
[2017-10-05] MEDS: Chloraseptic Spray 177 ML BOTTLE MM PRN (03:56)
[2017-10-05 04:53] LABS: Hematocrit 37.2 % (37.5-50.1); Hemoglobin 11.8 g/dL (12.9-16.9); Immature Granulocytes % 0.5 % (0-4); Lymphocytes # 0.4 K/mcL (0.6-4.6); Lymphocytes % 3.5 %; Mean Corpuscular HGB Conc 31.7 g/dL (31.6-35.5); Mean Corpuscular Hemoglobin 26.7 pg (28.0-33.3); Mean Corpuscular Volume 84.2 fL (83.0-100.0); Mean Platelet Volume 10.7 fL (9.4-12.4); Monocytes # 0.4 K/mcL (0.0-1.3); Monocytes % 3.4 %; Platelet Count 228 K/mcL (140-400); Red Blood Count 4.42 M/mcL (4.19-5.50); Segmented Neutrophils % 92.6 %
[2017-10-05 05:07] LABS: Magnesium 2.1 mg/dL (1.6-2.6); Phosphorous 2.9 mg/dL (2.3-4.7)
[2017-10-05 05:11] LABS: Alanine Aminotransferase 23 Units/L (0-55); Albumin 3.2 g/dL (3.5-5.0); Albumin/Globulin Ratio 0.9 (1.1-2.2); Alkaline Phosphatase 71 Units/L (38-126); Aspartate Amino Transferase 38 Units/L (5-34); BUN/Creatinine Ratio 25 (6-26); Bilirubin,Total 0.2 mg/dL (0.2-1.2); Blood Urea Nitrogen 21 mg/dL (8-26); Calcium 9.6 mg/dL (8.6-10.8); Carbon Dioxide 27 mEq/L (19-29); Chloride 104 mEq/L (98-109); Globulin 3.4 g/dL (2.4-3.5); Glucose 123 mg/dL (70-99); Osmolality,Calculated 286 (280-300); Potassium 4.6 mEq/L (3.5-4.5); Sodium 136 mEq/L (136-145); Total Protein 6.6 g/dL (6.0-8.3); eGFR For African Americans > 60 (> 60); eGFR For Non-African Americans > 60 (> 60)
[2017-10-05] MEDS: methylPREDNISolone 125 MG/2 ML VIAL IVP SCH ×2 (05:11→12:27)
[2017-10-05] MEDS: *HR* Enoxaparin 40 MG/0.4 ML SYRINGE SQ SCH (05:12)
[2017-10-05] MEDS: Ipratropium/Albuterol Neb 3 ML IH SCH ×3 (07:32→22:44)
[2017-10-05] MEDS: Budesonide/Formoterol 160/4.5 MDI IH SCH ×2 (07:32→22:44)
[2017-10-05] MEDS: Azithromycin 250 MG TABLET PO SCH (08:45)
[2017-10-05] MEDS: Celecoxib 200 MG CAPSULE PO SCH (08:45)
[2017-10-05] MEDS: sulfaSALAzine 500 MG TABLET PO SCH ×2 (08:45→20:54)
[2017-10-05] MEDS: Benzonatate 100 MG CAPSULE PO SCH ×3 (08:45→20:55)
[2017-10-05] MEDS: *HR* Acetylcysteine 20% 600 MG/3 ML ORAL SYRINGE PO SCH (08:45)
--- NOTE | 2017-10-05 09:49 | Pulmonology Progress Note ---
Date of Encounter: 10/05/17 Time of Encounter: 08:30 Assessment and Plan (1) Acute exacerbation of chronic obstructive airways disease Current Visit: Yes Status: Acute There is some improvement, however patient still not ready to be discharge and he feels also that way. I am hoping 1-2 days clinically would be ready to be discharged home.. (2) IPF (idiopathic pulmonary fibrosis) Current Visit: Yes Status: Chronic This is very complicated situation and his most recent CT chest is not in favor of IPF/UIP. They had discussion with the patient about [place] lung biopsy when he is more stable and he is in agreement. I offered him to be done at [place], but he prefer to go to [place]. We will arrange that as outpatient for him. (3) Rheumatoid arthritis Current Visit: Yes Status: Chronic Qualifiers: Rheumatoid arthritis location: multiple sites Rheumatoid factor presence: unspecified presence Qualified Code(s): M06.9 - Rheumatoid arthritis, unspecified Subjective Principal diagnosis: Shortness of breath Interval history: Patient continued to improve, however he still having symptoms. Objective PUL Vital signs: Last Vital Signs Temp 98.1 F 10/05/17 07:09 Pulse 74 10/05/17 07:09 Resp 18 10/05/17 07:35 BP 136/83 10/05/17 07:09 Pulse Ox 96 10/05/17 07:35 General appearance: no acute distress Eyes: nonicteric ENT: oropharynx moist Neck: supple Effort: mildly labored Auscultation: bilateral: wheezes Percussion: bilateral: not dull Cardiovascular: regular rate and rhythm Gastrointestinal: normoactive bowel sounds Extremities: no cyanosis, edema normal mental status, non-focal exam mood appropriate Results - Laboratory Findings CBC and BMP: 10/05/17 04:37 10/05/17 04:37 PT/INR, D-dimer PT 11.5 Seconds (9.4-12.1) 10/04/17 04:52 Abnormal lab findings: Abnormal lab results WBC 11.8 K/mcL (4.3-11.1) H 10/05/17 04:37 Hgb 11.8 g/dL (12.9-16.9) L 10/05/17 04:37 Hct 37.2 % (37.5-50.1) L 10/05/17 04:37 MCH 26.7 pg (28.0-33.3) L 10/05/17 04:37 RDW 15.0 % (11.5-14.5) H 10/05/17 04:37 Neutrophils # 11.0 K/mcL (1.6-8.9) H 10/05/17 04:37 Lymphocytes # 0.4 K/mcL (0.6-4.6) L 10/05/17 04:37 Potassium 4.6 mEq/L (3.5-4.5) H 10/05/17 04:37 Glucose 123 mg/dL (70-99) H 10/05/17 04:37 AST 38 Units/L (5-34) H 10/05/17 04:37 Albumin 3.2 g/dL (3.5-5.0) L 10/05/17 04:37 Albumin/Globulin Ratio 0.9 (1.1-2.2) L 10/05/17 04:37 LDL Cholesterol, Calc 119 mg/dL (0-99) H 10/04/17 04:52 HDL Cholesterol 68 mg/dL (40-59) H 10/04/17 04:52 - Clinical Findings Intake & Output: Intake & Output 10/04/17 10/05/17 10/05/17 23:59 07:59 15:59 Intake Total 550 / 550 300 / 300 240 / 240 Output Total 450 / 450 1150 / 1150 Balance 100 / 100 -850 / -850 240 / 240 Weight 85.3 kg Consult Discharge Plan - Plan Referrals: Addy Gómez DO [Primary Care Provider] -
[2017-10-05] MEDS: Acetaminophen 325 MG TABLET PO PRN (10:20)
--- NOTE | 2017-10-05 13:31 | Internal Med Progress Note ---
<Al Holman - Last Filed: 10/05/17 13:29> Date of Encounter: 10/05/17 Time of Encounter: 13:30 - Assessment and plan (1) Acute exacerbation of chronic obstructive airways disease Current Visit: Yes Status: Acute Assessment and plan: Clinically improving. Currently on bronchodilators, oxygen supplementation, chronic antibiotics with azithromycin. We will wean IV steroids. Pulmonology is following, appreciate recommendations. (2) IPF (idiopathic pulmonary fibrosis) Current Visit: Yes Status: Chronic Assessment and plan: Questionable. Patient requires open lung biopsy that will be set up as an outpatient. Continue IV steroids and we will start to wean as discussed above. Pulmonology is following. (3) GERD (gastroesophageal reflux disease) Current Visit: Yes Status: Chronic Assessment and plan: Stable. Continue PPI. Qualifiers: Esophagitis presence: esophagitis presence not specified Qualified Code(s) : K21.9 - Gastro-esophageal reflux disease without esophagitis (4) HTN (hypertension) Current Visit: Yes Status: Chronic Qualifiers: Hypertension type: essential hypertension Qualified Code(s): I10 - Essential (primary) hypertension (5) HLD (hyperlipidemia) Current Visit: Yes Status: Chronic Assessment and plan: Stable. Continue statin. Qualifiers: Hyperlipidemia type: pure hypercholesterolemia Qualified Code(s): E78.00 - Pure hypercholesterolemia, unspecified; E78.0 - Pure hypercholesterolemia (6) Rheumatoid arthritis Current Visit: Yes Status: Chronic Assessment and plan: Stable. Continue home medications. Qualifiers: Rheumatoid arthritis location: multiple sites Rheumatoid factor presence: unspecified presence Qualified Code(s): M06.9 - Rheumatoid arthritis, unspecified - Subjective Interval history: Patient seen and examined at bedside. He states that he feels a little better today. He reports a mild cough and mild shortness of breath with exertion that is improving. He denies fever, chills, chest pain. - Constitutional Vitals: Temp Pulse Resp BP Pulse Ox 97.6 F 89 16 129/76 93 10/05/17 11:18 10/05/17 11:18 10/05/17 11:18 10/05/17 11:18 10/05/17 11:18 General appearance: Present: cooperative, A&O X 3, pleasant, no acute distress, answers questions appropriately - Respiratory Respiratory exam: Present: decreased breath sounds, wheezes (bilaerally). Absent: rales, respiratory distress, rhonchi, tachypnea - Cardiovascular Cardiovascular exam: Present: RRR. Absent: gallop, rubs, systolic murmur - GI/Abdominal GI/Abdominal exam: Present: normal bowel sounds, soft. Absent: distended, tenderness - Extremities Exam Extremities exam: Present: warm. Absent: pedal edema, tenderness - Neurological Exam Neurological exam: Present: alert, CN II-XII intact, oriented X3, no focal deficits Internal Medicine: Result - Labs CBC & Chem 7: 10/05/17 04:37 10/05/17 04:37 Labs: Short CBC 10/05/17 Range/Units 04:37 WBC 11.8 H (4.3-11.1) K/mcL Hgb 11.8 L (12.9-16.9) g/dL Hct 37.2 L (37.5-50.1) % Plt Count 228 (140-400) K/mcL Neutrophils # 11.0 H (1.6-8.9) K/mcL BMP 10/05/17 04:37 Sodium 136 Potassium 4.6 H Chloride 104 Carbon Dioxide 27 BUN 21 Creatinine 0.84 Glucose 123 H Calcium 9.6 Liver Function 10/05/17 Range/Units 04:37 Total Bilirubin 0.2 (0.2-1.2) mg/dL AST 38 H (5-34) Units/L ALT 23 (0-55) Units/L Alkaline Phosphatase 71 (38-126) Units/L Albumin 3.2 L (3.5-5.0) g/dL - ABG Interpretation ABG results: PT/INR, D-dimer PT 11.5 Seconds (9.4-12.1) 10/04/17 04:52 Consult Discharge Plan - Plan Referrals: Addy Gómez DO [Primary Care Provider] - <Brian Luna - Last Filed: 10/05/17 14:12> Date of Encounter: 10/05/17 - Constitutional Vitals: Temp Pulse Resp BP Pulse Ox 97.6 F 89 16 129/76 93 10/05/17 11:18 10/05/17 11:18 10/05/17 11:18 10/05/17 11:18 10/05/17 11:18 Internal Medicine: Result - Labs CBC & Chem 7: 10/05/17 04:37 10/05/17 04:37 Labs: Short CBC 10/05/17 Range/Units 04:37 WBC 11.8 H (4.3-11.1) K/mcL Hgb 11.8 L (12.9-16.9) g/dL Hct 37.2 L (37.5-50.1) % Plt Count 228 (140-400) K/mcL Neutrophils # 11.0 H (1.6-8.9) K/mcL BMP 10/05/17 04:37 Sodium 136 Potassium 4.6 H Chloride 104 Carbon Dioxide 27 BUN 21 Creatinine 0.84 Glucose 123 H Calcium 9.6 Liver Function 10/05/17 Range/Units 04:37 Total Bilirubin 0.2 (0.2-1.2) mg/dL AST 38 H (5-34) Units/L ALT 23 (0-55) Units/L Alkaline Phosphatase 71 (38-126) Units/L Albumin 3.2 L (3.5-5.0) g/dL - ABG Interpretation ABG results: PT/INR, D-dimer PT 11.5 Seconds (9.4-12.1) 10/04/17 04:52 - Attending Attestation I independently interviewed and examined this pt. I agree wit the findings, assessment and plan of Dr. Holman, Resident physician. I also appreciate pulmonary medicine input. Continue cuurrent tx, hep lock IVF. Outpt lung bx. Pt clinically improved but not ready for dc as he is still quite symptomatic.
[2017-10-05] MEDS: MethylPREDNISolone 40 MG/ML VIAL IVP SCH (15:32)
[2017-10-05] MEDS: *HR* OxyCODONE/APAP 5/325 TABLET PO PRN (17:41)
[2017-10-05] MEDS: Latanoprost 2.5 ML BOTTLE RIGHT EYE SCH (20:57)
[2017-10-06] MEDS: MethylPREDNISolone 40 MG/ML VIAL IVP SCH ×3 (00:30→16:48)
[2017-10-06] MEDS ORDERED: Melatonin 3 MG TABLET PO ONE (01:33)
[2017-10-06 04:46] LABS: Hematocrit 36.6 % (37.5-50.1); Hemoglobin 11.5 g/dL (12.9-16.9); Immature Granulocytes % 1.3 % (0-4); Lymphocytes # 0.4 K/mcL (0.6-4.6); Lymphocytes % 3.7 %; Mean Corpuscular HGB Conc 31.4 g/dL (31.6-35.5); Mean Corpuscular Hemoglobin 26.7 pg (28.0-33.3); Mean Corpuscular Volume 85.1 fL (83.0-100.0); Mean Platelet Volume 11.1 fL (9.4-12.4); Monocytes # 0.5 K/mcL (0.0-1.3); Monocytes % 4.8 %; Neutrophils # 10.1 K/mcL (1.6-8.9); Platelet Count 221 K/mcL (140-400); Red Cell Distribution Width 15.4 % (11.5-14.5); Segmented Neutrophils % 90.2 %
[2017-10-06 04:53] LABS: Alanine Aminotransferase 27 Units/L (0-55); Albumin/Globulin Ratio 0.9 (1.1-2.2); Alkaline Phosphatase 64 Units/L (38-126); Aspartate Amino Transferase 41 Units/L (5-34); BUN/Creatinine Ratio 27 (6-26); Bilirubin,Total 0.3 mg/dL (0.2-1.2); Blood Urea Nitrogen 25 mg/dL (8-26); Calcium 9.5 mg/dL (8.6-10.8); Carbon Dioxide 29 mEq/L (19-29); Chloride 103 mEq/L (98-109); Globulin 3.2 g/dL (2.4-3.5); Glucose 112 mg/dL (70-99); Osmolality,Calculated 291 (280-300); Potassium 4.1 mEq/L (3.5-4.5); Sodium 138 mEq/L (136-145); Total Protein 6.2 g/dL (6.0-8.3); eGFR For African Americans > 60 (> 60); eGFR For Non-African Americans > 60 (> 60)
[2017-10-06] MEDS: *HR* Enoxaparin 40 MG/0.4 ML SYRINGE SQ SCH (05:25)
[2017-10-06] MEDS: Budesonide/Formoterol 160/4.5 MDI IH SCH ×2 (07:27→21:37)
[2017-10-06] MEDS: Ipratropium/Albuterol Neb 3 ML IH SCH ×3 (07:27→21:37)
--- NOTE | 2017-10-06 08:00 | Pulmonology Progress Note ---
Date of Encounter: 10/06/17 Time of Encounter: 07:30 Assessment and Plan (1) Acute exacerbation of chronic obstructive airways disease Current Visit: Yes Status: Acute Patient is slowly improving on current treatment and recommended to continue bronchodilators and systemic steroid for now and I am hoping in next 1-2 days he would be able to be discharged home. (2) IPF (idiopathic pulmonary fibrosis) Current Visit: Yes Status: Chronic This is very complicated situation and his most recent CT chest is not in favor of IPF/UIP. They had discussion with the patient about [place] lung biopsy when he is more stable and he is in agreement. I offered him to be done at [place], but he prefer to go to [place]. We will arrange that as outpatient for him. (3) Rheumatoid arthritis Current Visit: Yes Status: Chronic Qualifiers: Rheumatoid arthritis location: multiple sites Rheumatoid factor presence: unspecified presence Qualified Code(s): M06.9 - Rheumatoid arthritis, unspecified Subjective Principal diagnosis: Shortness of breath Interval history: Patient slowly is getting better but continued to have dyspnea and wheezing. Objective PUL Vital signs: Last Vital Signs Temp 97.7 F 10/06/17 03:04 Pulse 88 10/06/17 03:04 Resp 18 10/06/17 07:28 BP 157/81 10/06/17 03:04 Pulse Ox 93 10/06/17 07:28 General appearance: no acute distress Eyes: nonicteric ENT: oropharynx moist Neck: supple Effort: mildly labored Auscultation: bilateral: wheezes Percussion: bilateral: not dull Cardiovascular: regular rate and rhythm Gastrointestinal: normoactive bowel sounds, non-distended Extremities: no cyanosis, edema normal mental status, non-focal exam mood appropriate Results - Laboratory Findings CBC and BMP: 10/06/17 03:55 10/06/17 03:55 PT/INR, D-dimer PT 11.5 Seconds (9.4-12.1) 10/04/17 04:52 Abnormal lab findings: Abnormal lab results WBC 11.2 K/mcL (4.3-11.1) H 10/06/17 03:55 Hgb 11.5 g/dL (12.9-16.9) L 10/06/17 03:55 Hct 36.6 % (37.5-50.1) L 10/06/17 03:55 MCH 26.7 pg (28.0-33.3) L 10/06/17 03:55 MCHC 31.4 g/dL (31.6-35.5) L 10/06/17 03:55 RDW 15.4 % (11.5-14.5) H 10/06/17 03:55 Neutrophils # 10.1 K/mcL (1.6-8.9) H 10/06/17 03:55 Lymphocytes # 0.4 K/mcL (0.6-4.6) L 10/06/17 03:55 BUN/Creatinine Ratio 27 (6-26) H 10/06/17 03:55 Glucose 112 mg/dL (70-99) H 10/06/17 03:55 AST 41 Units/L (5-34) H 10/06/17 03:55 Albumin 3.0 g/dL (3.5-5.0) L 10/06/17 03:55 Albumin/Globulin Ratio 0.9 (1.1-2.2) L 10/06/17 03:55 LDL Cholesterol, Calc 119 mg/dL (0-99) H 10/04/17 04:52 HDL Cholesterol 68 mg/dL (40-59) H 10/04/17 04:52 - Clinical Findings Intake & Output: Intake & Output 10/05/17 10/05/17 10/06/17 15:59 23:59 07:59 Intake Total 1298 / 1298 400 / 400 240 / 240 Output Total 1500 / 1500 600 / 600 Balance 1298 / 1298 -1100 / -1100 -360 / -360 Weight 85.457 kg Consult Discharge Plan - Plan Referrals: Addy Gómez DO [Primary Care Provider] -
[2017-10-06] MEDS: Benzonatate 100 MG CAPSULE PO SCH ×3 (08:23→21:51)
[2017-10-06] MEDS: sulfaSALAzine 500 MG TABLET PO SCH ×2 (08:23→21:51)
[2017-10-06] MEDS: Azithromycin 250 MG TABLET PO SCH (08:23)
[2017-10-06] MEDS: Celecoxib 200 MG CAPSULE PO SCH (08:24)
--- NOTE | 2017-10-06 09:04 | Internal Med Progress Note ---
<Al Holman - Last Filed: 10/06/17 08:34> Date of Encounter: 10/06/17 Time of Encounter: 09:04 - Assessment and plan (1) Acute exacerbation of chronic obstructive airways disease Current Visit: Yes Status: Acute Assessment and plan: Clinically improving. Currently on bronchodilators, oxygen supplementation, chronic antibiotics with azithromycin. Continue to wean IV steroids, hopefully transition to by mouth steroids tomorrow. Patient would likely benefit from a longer taper. Pulmonology is following, appreciate recommendations. (2) IPF (idiopathic pulmonary fibrosis) Current Visit: Yes Status: Chronic Assessment and plan: Questionable. Patient requires open lung biopsy that will be set up as an outpatient. Continue IV steroids and we will start to wean as discussed above. Pulmonology is following. (3) GERD (gastroesophageal reflux disease) Current Visit: Yes Status: Chronic Assessment and plan: Stable. Continue PPI. Qualifiers: Esophagitis presence: esophagitis presence not specified Qualified Code(s) : K21.9 - Gastro-esophageal reflux disease without esophagitis (4) HTN (hypertension) Current Visit: Yes Status: Chronic Assessment and plan: Patient is mildly hypertensive during his stay. He is not on any antihypertensives at home. Discussed with the patient and he has never had problems with blood pressure before. Will use hydralazine when necessary for systolic blood pressures greater than 170. Encouraged patient to follow-up with PCP for further blood pressure management. Qualifiers: Hypertension type: essential hypertension Qualified Code(s): I10 - Essential (primary) hypertension (5) HLD (hyperlipidemia) Current Visit: Yes Status: Chronic Assessment and plan: Stable. Continue statin. Qualifiers: Hyperlipidemia type: pure hypercholesterolemia Qualified Code(s): E78.00 - Pure hypercholesterolemia, unspecified; E78.0 - Pure hypercholesterolemia (6) Rheumatoid arthritis Current Visit: Yes Status: Chronic Assessment and plan: Stable. Continue home medications. Qualifiers: Rheumatoid arthritis location: multiple sites Rheumatoid factor presence: unspecified presence Qualified Code(s): M06.9 - Rheumatoid arthritis, unspecified - Subjective Interval history: Patient seen and examined at bedside. He states that he continues to feel better. He reports a mild cough and mild shortness of breath with exertion that is improving. He denies fever, chills, chest pain. He is still requiring oxygen therapy. - Constitutional Vitals: Temp Pulse Resp BP Pulse Ox 97.7 F 88 18 157/81 93 10/06/17 03:04 10/06/17 03:04 10/06/17 07:28 10/06/17 03:04 10/06/17 07:28 General appearance: Present: cooperative, A&O X 3, pleasant, no acute distress, answers questions appropriately - Respiratory Respiratory exam: Present: wheezes (bilaterally). Absent: CTAB, rales, respiratory distress, rhonchi, tachypnea - Cardiovascular Cardiovascular exam: Present: RRR. Absent: gallop, rubs, systolic murmur - GI/Abdominal GI/Abdominal exam: Present: normal bowel sounds, soft. Absent: distended, tenderness - Extremities Exam Extremities exam: Present: warm. Absent: pedal edema, tenderness - Neurological Exam Neurological exam: Present: alert, CN II-XII intact, oriented X3, no focal deficits Internal Medicine: Result - Labs CBC & Chem 7: 10/06/17 03:55 10/06/17 03:55 Labs: Short CBC 10/06/17 Range/Units 03:55 WBC 11.2 H (4.3-11.1) K/mcL Hgb 11.5 L (12.9-16.9) g/dL Hct 36.6 L (37.5-50.1) % Plt Count 221 (140-400) K/mcL Neutrophils # 10.1 H (1.6-8.9) K/mcL BMP 10/06/17 03:55 Sodium 138 Potassium 4.1 Chloride 103 Carbon Dioxide 29 BUN 25 Creatinine 0.92 Glucose 112 H Calcium 9.5 Liver Function 10/06/17 Range/Units 03:55 Total Bilirubin 0.3 (0.2-1.2) mg/dL AST 41 H (5-34) Units/L ALT 27 (0-55) Units/L Alkaline Phosphatase 64 (38-126) Units/L Albumin 3.0 L (3.5-5.0) g/dL - ABG Interpretation ABG results: PT/INR, D-dimer PT 11.5 Seconds (9.4-12.1) 10/04/17 04:52 Consult Discharge Plan - Plan Referrals: Addy Gómez DO [Primary Care Provider] - <Brian Luna - Last Filed: 10/06/17 12:49> Date of Encounter: 10/06/17 - Constitutional Vitals: Temp Pulse Resp BP Pulse Ox 97.1 F L 80 18 130/70 93 10/06/17 11:59 10/06/17 11:59 10/06/17 11:59 10/06/17 11:59 10/06/17 11:59 Internal Medicine: Result - Labs CBC & Chem 7: 10/06/17 03:55 10/06/17 03:55 Labs: Short CBC 10/06/17 Range/Units 03:55 WBC 11.2 H (4.3-11.1) K/mcL Hgb 11.5 L (12.9-16.9) g/dL Hct 36.6 L (37.5-50.1) % Plt Count 221 (140-400) K/mcL Neutrophils # 10.1 H (1.6-8.9) K/mcL BMP 10/06/17 03:55 Sodium 138 Potassium 4.1 Chloride 103 Carbon Dioxide 29 BUN 25 Creatinine 0.92 Glucose 112 H Calcium 9.5 Liver Function 10/06/17 Range/Units 03:55 Total Bilirubin 0.3 (0.2-1.2) mg/dL AST 41 H (5-34) Units/L ALT 27 (0-55) Units/L Alkaline Phosphatase 64 (38-126) Units/L Albumin 3.0 L (3.5-5.0) g/dL - ABG Interpretation ABG results: PT/INR, D-dimer PT 11.5 Seconds (9.4-12.1) 10/04/17 04:52 - Attending Attestation I independently interviewed and examined this patient. I agree with the findings, assessment, and plan of , resident. We discussed the case in detail. Continue current antibiotics and steroids with weaning as able. We will titrate oxygen off as best able as well. Pulmonary input appreciated.
[2017-10-06] MEDS: *HR* Acetylcysteine 20% 600 MG/3 ML ORAL SYRINGE PO SCH (11:56)
[2017-10-06] MEDS: *HR* OxyCODONE/APAP 5/325 TABLET PO PRN (16:46)
[2017-10-06] MEDS: Latanoprost 2.5 ML BOTTLE RIGHT EYE SCH (21:52)
[2017-10-07] MEDS: *HR* OxyCODONE/APAP 5/325 TABLET PO PRN ×3 (01:37→15:53)
[2017-10-07] MEDS: Melatonin 3 MG TABLET PO PRN (01:44)
[2017-10-07] MEDS: *HR* Enoxaparin 40 MG/0.4 ML SYRINGE SQ SCH (06:10)
[2017-10-07] MEDS: Budesonide/Formoterol 160/4.5 MDI IH SCH ×2 (07:44→22:43)
[2017-10-07] MEDS: Ipratropium/Albuterol Neb 3 ML IH SCH ×3 (07:44→22:43)
[2017-10-07] MEDS: Benzonatate 100 MG CAPSULE PO SCH ×3 (07:48→20:31)
[2017-10-07] MEDS: Azithromycin 250 MG TABLET PO SCH (07:48)
[2017-10-07] MEDS: Celecoxib 200 MG CAPSULE PO SCH (07:48)
[2017-10-07] MEDS: sulfaSALAzine 500 MG TABLET PO SCH ×2 (07:48→20:31)
[2017-10-07] MEDS: predniSONE 20 MG TABLET PO SCH (07:48)
[2017-10-07] MEDS: *HR* Acetylcysteine 20% 600 MG/3 ML ORAL SYRINGE PO SCH (07:51)
--- NOTE | 2017-10-07 10:48 | Pulmonology Progress Note ---
Date of Encounter: 10/07/17 Time of Encounter: 08:00 Assessment and Plan (1) Acute exacerbation of chronic obstructive airways disease Current Visit: Yes Status: Acute Patient is slowly responding to current treatment and he feels maybe tomorrow he will be ready to discharge home that depends on the clinical course. I will change systemic steroids to oral and if he tolerates it without significant pain symptoms then hopefully discharge with follow-up as outpatient for further management. (2) IPF (idiopathic pulmonary fibrosis) Current Visit: Yes Status: Chronic This is very complicated situation and his most recent CT chest is not in favor of IPF/UIP. They had discussion with the patient about [place] lung biopsy when he is more stable and he is in agreement. I offered him to be done at [place], but he prefer to go to [place]. We will arrange that as outpatient for him. (3) Rheumatoid arthritis Current Visit: Yes Status: Chronic Qualifiers: Rheumatoid arthritis location: multiple sites Rheumatoid factor presence: unspecified presence Qualified Code(s): M06.9 - Rheumatoid arthritis, unspecified Subjective Principal diagnosis: Shortness of breath Interval history: One more time slowly improving on current treatment but he does not feel he is close to his baseline to go home. Objective PUL Vital signs: Last Vital Signs Temp 97.9 F 10/07/17 06:58 Pulse 79 10/07/17 06:58 Resp 16 10/07/17 07:46 BP 186/94 10/07/17 06:58 Pulse Ox 92 10/07/17 07:59 General appearance: no acute distress Eyes: nonicteric ENT: oropharynx moist Neck: supple Effort: mildly labored Auscultation: bilateral: wheezes Percussion: bilateral: not dull Cardiovascular: regular rate and rhythm Gastrointestinal: normoactive bowel sounds, non-distended Extremities: no cyanosis, edema normal mental status, non-focal exam mood appropriate Results - Laboratory Findings CBC and BMP: 10/06/17 03:55 10/06/17 03:55 PT/INR, D-dimer PT 11.5 Seconds (9.4-12.1) 10/04/17 04:52 Abnormal lab findings: Abnormal lab results WBC 11.2 K/mcL (4.3-11.1) H 10/06/17 03:55 Hgb 11.5 g/dL (12.9-16.9) L 10/06/17 03:55 Hct 36.6 % (37.5-50.1) L 10/06/17 03:55 MCH 26.7 pg (28.0-33.3) L 10/06/17 03:55 MCHC 31.4 g/dL (31.6-35.5) L 10/06/17 03:55 RDW 15.4 % (11.5-14.5) H 10/06/17 03:55 Neutrophils # 10.1 K/mcL (1.6-8.9) H 10/06/17 03:55 Lymphocytes # 0.4 K/mcL (0.6-4.6) L 10/06/17 03:55 BUN/Creatinine Ratio 27 (6-26) H 10/06/17 03:55 Glucose 112 mg/dL (70-99) H 10/06/17 03:55 AST 41 Units/L (5-34) H 10/06/17 03:55 Albumin 3.0 g/dL (3.5-5.0) L 10/06/17 03:55 Albumin/Globulin Ratio 0.9 (1.1-2.2) L 10/06/17 03:55 LDL Cholesterol, Calc 119 mg/dL (0-99) H 10/04/17 04:52 HDL Cholesterol 68 mg/dL (40-59) H 10/04/17 04:52 - Clinical Findings Intake & Output: Intake & Output 10/06/17 10/07/17 10/07/17 23:59 07:59 15:59 Intake Total 400 / 400 400 / 400 Output Total 950 / 950 1525 / 1525 Balance -550 / -550 -1125 / -1125 Consult Discharge Plan - Plan Referrals: Addy Gómez DO [Primary Care Provider] -
--- NOTE | 2017-10-07 12:40 | Internal Med Progress Note ---
<Nj Velarde - Last Filed: 10/07/17 15:47> Date of Encounter: 10/07/17 Time of Encounter: 12:58 - Assessment and plan (1) Acute exacerbation of chronic obstructive airways disease Current Visit: Yes Status: Acute Assessment and plan: Clinically improving. Currently on bronchodilators, oxygen supplementation, chronic antibiotics with azithromycin. Was transitioned from IV Solu-Medrol 60 mg every 8 hours to prednisone 40 mg by mouth daily today and will monitor him today. Patient would likely benefit from a longer taper. Pulmonology is following, appreciate recommendations. (2) IPF (idiopathic pulmonary fibrosis) Current Visit: Yes Status: Chronic Assessment and plan: Questionable. Patient requires open lung biopsy that will be set up as an outpatient with pulmonology (3) GERD (gastroesophageal reflux disease) Current Visit: Yes Status: Chronic Assessment and plan: Stable. Continue PPI Qualifiers: Esophagitis presence: esophagitis presence not specified Qualified Code(s) : K21.9 - Gastro-esophageal reflux disease without esophagitis (4) HLD (hyperlipidemia) Current Visit: Yes Status: Chronic Assessment and plan: Continue statin. Qualifiers: Hyperlipidemia type: pure hypercholesterolemia Qualified Code(s): E78.00 - Pure hypercholesterolemia, unspecified; E78.0 - Pure hypercholesterolemia (5) HTN (hypertension) Current Visit: Yes Status: Chronic Assessment and plan: No prior history of hypertension but patient has been mildly hypertensive during this hospital admission. Has hydralazine when necessary for systolic blood pressures greater than 170, required a dose this morning for BP = 186/94. Will start him on LEXIS inhibitor. Encouraged patient to follow-up with PCP for further blood pressure management. Qualifiers: Hypertension type: essential hypertension Qualified Code(s): I10 - Essential (primary) hypertension (6) Rheumatoid arthritis Current Visit: Yes Status: Chronic Assessment and plan: Stable. Continue home medications. Qualifiers: Rheumatoid arthritis location: multiple sites Rheumatoid factor presence: unspecified presence Qualified Code(s): M06.9 - Rheumatoid arthritis, unspecified (7) DVT prophylaxis Current Visit: Yes Status: Acute Assessment and plan: Lovenox SQ - Subjective Interval history: Mr. Yoder is has hx of COPD, idiopathic pulmonary fibrosis, GERD, HLD, HTN, and RA. Presented to ED 10/03 with shortness of breath x1 day. Had recently finished a course of azithromycin for upper respiratory symptoms Patient seen and examined today. He was up walking around his room. Although he still complains of dyspnea on exertion, he does affirm that his shortness of breath is much better relative to time of presentation - Constitutional Vitals: Temp Pulse Resp BP Pulse Ox 97.4 F L 79 17 141/76 91 10/07/17 10:59 10/07/17 10:59 10/07/17 10:59 10/07/17 10:59 10/07/17 10:59 General appearance: Present: cooperative, A&O X 3, pleasant, no acute distress, answers questions appropriately - Respiratory Respiratory exam: Present: rhonchi, wheezes (Diffuse, bilateral). Absent: accessory muscle use, respiratory distress, tachypnea - Cardiovascular Cardiovascular exam: Present: RRR, +S1, +S2. Absent: diastolic murmur, gallop, rubs, systolic murmur - GI/Abdominal GI/Abdominal exam: Present: normal bowel sounds, soft, no peritoneal signs. Absent: distended, tenderness - Extremities Exam Extremities exam: Present: warm, radial pulses palpable and symmetrical. Absent : pedal edema - Neurological Exam Neurological exam: Present: alert, oriented X3, no focal deficits Internal Medicine: Result - Labs CBC & Chem 7: 10/06/17 03:55 10/06/17 03:55 - ABG Interpretation ABG results: PT/INR, D-dimer PT 11.5 Seconds (9.4-12.1) 10/04/17 04:52 Consult Discharge Plan - Plan Referrals: Addy Gómez DO [Primary Care Provider] - <Brian Luna - Last Filed: 10/07/17 16:01> Date of Encounter: 10/07/17 - Constitutional Vitals: Temp Pulse Resp BP Pulse Ox 97.4 F L 79 17 141/76 91 10/07/17 10:59 10/07/17 10:59 10/07/17 10:59 10/07/17 10:59 10/07/17 10:59 Internal Medicine: Result - Labs CBC & Chem 7: 10/06/17 03:55 10/06/17 03:55 - ABG Interpretation ABG results: PT/INR, D-dimer PT 11.5 Seconds (9.4-12.1) 10/04/17 04:52 - Attending Attestation I independently interviewed and examined this pt. I agree with the findings, assessment and plan of Dr. Velarde, medical chemist. I also apreciate pulm med input. PT is improved. changed to po steroids. Antic dc in am if ongoing improvement. Outpt lung bx.,
[2017-10-07] MEDS: Latanoprost 2.5 ML BOTTLE RIGHT EYE SCH (20:31)
[2017-10-08] MEDS: Melatonin 3 MG TABLET PO PRN (00:12)
[2017-10-08] MEDS: Chloraseptic Spray 177 ML BOTTLE MM PRN (05:18)
[2017-10-08] MEDS: *HR* Enoxaparin 40 MG/0.4 ML SYRINGE SQ SCH (05:18)
[2017-10-08] MEDS: *HR* OxyCODONE/APAP 5/325 TABLET PO PRN (05:18)
[2017-10-08 06:49] LABS: Basophils % 0.1 %; Eosinophils # 0.5 K/mcL (0.0-0.6); Eosinophils % 6.8 %; Hematocrit 38.8 % (37.5-50.1); Hemoglobin 12.1 g/dL (12.9-16.9); Immature Granulocytes % 0.4 % (0-4); Lymphocytes # 1.9 K/mcL (0.6-4.6); Lymphocytes % 23.9 %; Mean Corpuscular HGB Conc 31.2 g/dL (31.6-35.5); Mean Corpuscular Hemoglobin 26.7 pg (28.0-33.3); Mean Corpuscular Volume 85.7 fL (83.0-100.0); Mean Platelet Volume 11.1 fL (9.4-12.4); Monocytes % 12.6 %; Neutrophils # 4.4 K/mcL (1.6-8.9); Platelet Count 211 K/mcL (140-400); Red Blood Count 4.53 M/mcL (4.19-5.50); Red Cell Distribution Width 14.9 % (11.5-14.5); Segmented Neutrophils % 56.2 %
[2017-10-08 07:00] LABS: Alanine Aminotransferase 28 Units/L (0-55); Albumin 2.9 g/dL (3.5-5.0); Albumin/Globulin Ratio 0.9 (1.1-2.2); Alkaline Phosphatase 64 Units/L (38-126); Aspartate Amino Transferase 27 Units/L (5-34); BUN/Creatinine Ratio 20 (6-26); Bilirubin,Total 0.6 mg/dL (0.2-1.2); Blood Urea Nitrogen 19 mg/dL (8-26); Calcium 8.9 mg/dL (8.6-10.8); Carbon Dioxide 31 mEq/L (19-29); Chloride 103 mEq/L (98-109); Globulin 3.4 g/dL (2.4-3.5); Glucose 88 mg/dL (70-99); Osmolality,Calculated 292 (280-300); Potassium 4.2 mEq/L (3.5-4.5); Sodium 140 mEq/L (136-145); Total Protein 6.3 g/dL (6.0-8.3); eGFR For African Americans > 60 (> 60); eGFR For Non-African Americans > 60 (> 60)
[2017-10-08] MEDS: Celecoxib 200 MG CAPSULE PO SCH (07:20)
[2017-10-08] MEDS: predniSONE 20 MG TABLET PO SCH (07:20)
[2017-10-08] MEDS: Azithromycin 250 MG TABLET PO SCH (07:21)
[2017-10-08] MEDS: *HR* Acetylcysteine 20% 600 MG/3 ML ORAL SYRINGE PO SCH (07:21)
[2017-10-08] MEDS: sulfaSALAzine 500 MG TABLET PO SCH (07:21)
[2017-10-08] MEDS: Benzonatate 100 MG CAPSULE PO SCH ×2 (07:21→13:31)
[2017-10-08] MEDS: Budesonide/Formoterol 160/4.5 MDI IH SCH (08:05)
[2017-10-08] MEDS: Ipratropium/Albuterol Neb 3 ML IH SCH (08:05)
--- NOTE | 2017-10-08 09:13 | Pulmonology Progress Note ---
Date of Encounter: 10/08/17 Time of Encounter: 08:35 Assessment and Plan (1) Acute exacerbation of chronic obstructive airways disease Current Visit: Yes Status: Resolved Patient tolerated oral prednisone and he feels he is close to his baseline and will be able to manage his symptoms at home as long as he has medications. Discussed with primary team that patient can be discharged home and I will arrange necessary follow-up as outpatient and as I indicated before further workup in terms of open lung biopsy will be arranged as outpatient. He needs to continue systemic steroid and I will decide tapering as outpatient. (2) IPF (idiopathic pulmonary fibrosis) Current Visit: Yes Status: Chronic This is very complicated situation and his most recent CT chest is not in favor of IPF/UIP. They had discussion with the patient about [place] lung biopsy when he is more stable and he is in agreement. I offered him to be done at [place], but he prefer to go to [place]. We will arrange that as outpatient for him. 10/08 advised patient to discontinue Esbriet for now and continue only prednisone. (3) Rheumatoid arthritis Current Visit: Yes Status: Chronic Qualifiers: Rheumatoid arthritis location: multiple sites Rheumatoid factor presence: unspecified presence Qualified Code(s): M06.9 - Rheumatoid arthritis, unspecified Subjective Principal diagnosis: Shortness of breath Interval history: Patient is feeling better and he thinks he has his medications then he can manage it at home. He is off oxygen. Objective PUL Vital signs: Last Vital Signs Temp 97.7 F 10/08/17 07:08 Pulse 70 10/08/17 07:08 Resp 17 10/08/17 08:06 BP 176/94 10/08/17 07:08 Pulse Ox 94 10/08/17 08:06 General appearance: no acute distress Eyes: nonicteric ENT: oropharynx moist Neck: supple Effort: normal Auscultation: bilateral: rhonchi Percussion: bilateral: not dull Cardiovascular: regular rate and rhythm Gastrointestinal: normoactive bowel sounds, non-distended Extremities: no cyanosis normal mental status, non-focal exam mood appropriate Results - Laboratory Findings CBC and BMP: 10/08/17 06:22 10/08/17 06:22 PT/INR, D-dimer PT 11.5 Seconds (9.4-12.1) 10/04/17 04:52 Abnormal lab findings: Abnormal lab results Hgb 12.1 g/dL (12.9-16.9) L 10/08/17 06:22 MCH 26.7 pg (28.0-33.3) L 10/08/17 06:22 MCHC 31.2 g/dL (31.6-35.5) L 10/08/17 06:22 RDW 14.9 % (11.5-14.5) H 10/08/17 06:22 Carbon Dioxide 31 mEq/L (19-29) H 10/08/17 06:22 Albumin 2.9 g/dL (3.5-5.0) L 10/08/17 06:22 Albumin/Globulin Ratio 0.9 (1.1-2.2) L 10/08/17 06:22 LDL Cholesterol, Calc 119 mg/dL (0-99) H 10/04/17 04:52 HDL Cholesterol 68 mg/dL (40-59) H 10/04/17 04:52 - Clinical Findings Intake & Output: Intake & Output 10/07/17 10/08/17 10/08/17 23:59 07:59 15:59 Intake Total 0 / 0 140 / 140 240 / 240 Output Total 950 / 950 2250 / 2250 Balance -950 / -950 -2110 / -2110 240 / 240 Weight 85.729 kg Consult Discharge Plan - Plan Referrals: Addy Gómez DO [Primary Care Provider] -
[2017-10-08 11:24] VITALS: BP 146/94
--- NOTE | 2017-10-08 12:23 | Event Note ---
Date of Encounter: 10/08/17 Time of Encounter: 10:00 Performed an independent in to review and examination of this patient. I discussed the case with Dr. Velarde, medical record clerk. I agree with his findings, assessment and plan. I also discussed the case with pulmonary medicine. Patient is stable for discharge. He will go home on prednisone 40 mg by mouth daily, and a some Percocet for pain. Continue antibiotics. Please see discharge summary for full details. A total of 32 minutes was spent on discharge and coordination of care.
--- NOTE | 2017-10-08 14:19 | Discharge Summary ---
Date of Encounter: 10/08/17 Time of Encounter: 13:56 - Discharge Diagnosis (1) Acute exacerbation of chronic obstructive airways disease Priority: Primary Status: Resolved (2) IPF (idiopathic pulmonary fibrosis) Priority: Primary Status: Chronic (3) GERD (gastroesophageal reflux disease) Priority: Secondary Status: Chronic Qualifiers: Esophagitis presence: esophagitis presence not specified Qualified Code(s) : K21.9 - Gastro-esophageal reflux disease without esophagitis (4) HLD (hyperlipidemia) Priority: Secondary Status: Chronic Qualifiers: Hyperlipidemia type: pure hypercholesterolemia Qualified Code(s): E78.00 - Pure hypercholesterolemia, unspecified; E78.0 - Pure hypercholesterolemia (5) HTN (hypertension) Priority: Secondary Status: Chronic Qualifiers: Hypertension type: essential hypertension Qualified Code(s): I10 - Essential (primary) hypertension (6) Rheumatoid arthritis Priority: Secondary Status: Chronic Qualifiers: Rheumatoid arthritis location: multiple sites Rheumatoid factor presence: unspecified presence Qualified Code(s): M06.9 - Rheumatoid arthritis, unspecified (7) DVT prophylaxis Priority: Secondary Status: Acute - Discharge Medications Prescriptions: Budesonide/Formoterol 160/4.5 [Symbicort 160/4.5] 2 puff IH BIDR 30 Days #1 inhaler Lisinopril [Zestril] 10 mg PO DAILY #30 tablet predniSONE [PredniSONE] 40 mg PO DAILY 14 Days #14 tablet Rosuvastatin [Crestor] 10 mg PO HS #30 tablet Home Medications: Abatacept [Orencia] 125 mg SQ QWEEK 10/03/17 [History] Acetylcysteine [S-Untjcm-p-Cysteine] 1,200 mg PO DAILY 10/03/17 [History] Albuterol Sulfate [Ventolin Hfa] 2 puff IH Q6H 10/03/17 [History] Azithromycin [Zithromax] 250 mg PO DAILY 10/03/17 [History] Benzonatate [Tessalon] 200 mg PO TID 10/03/17 [History] Celecoxib [Celebrex] 200 mg PO DAILY 10/03/17 [History] Cyclosporine [Restasis] 1 drop OP BID 10/03/17 [History] Latanoprost [Xalatan] 1 drop OP HS 10/03/17 [History] Omeprazole [PriLOSEC] 40 mg PO BID 10/03/17 [History] Oxycodone HCl/Acetaminophen [Percocet 5-325 mg Tablet] 1 tab PO DAILY PRN [History] Pirfenidone [Esbriet] 801 mg PO TID 10/03/17 [History] Roflumilast [Daliresp] 500 mcg PO DAILY 10/03/17 [History] Sulfasalazine [Azulfidine] 1,000 mg PO BID 10/03/17 [History] Tramadol HCl [Ultram] 50 mg PO BID PRN 10/03/17 [History] Umeclidinium Brm/Vilanterol Tr [Anoro Ellipta 62.5-25 Mcg INH] 1 puff IH DAILY 10/03/17 [History] Budesonide/Formoterol 160/4.5 [Symbicort 160/4.5] 2 puff IH BIDR 30 Days #1 inhaler 10/08/17 [Rx] Lisinopril [Zestril] 10 mg PO DAILY #30 tablet 10/08/17 [Rx] Rosuvastatin [Crestor] 10 mg PO HS #30 tablet 10/08/17 [Rx] predniSONE [PredniSONE] 40 mg PO DAILY 14 Days #14 tablet 10/08/17 [Rx] Allergies/Adverse Reactions: 3 Allergy/AdvReac Type Severity Reaction Status Date / Time atorvastatin [From Lipitor] AdvReac See Verified 10/03/17 11:20 Comments Date of admission: 10/06/17 13:17 Primary care physician: Addy Gómez Discharging clinician: Brian Luna Anticipated date of discharge: 10/08/17 - Patient Status Disposition: Home, Self-Care Condition: Fair Functional capacity at discharge: independent ambulation Overall status at discharge: patient is progressing back to baseline - Discharge Instructions Follow Up With: Addy Gómez DO [Primary Care Provider] - Jorge L Luis MD [Partnered Physician] - - Diet and Activity Activity: resume usual activities as tolerated Diet: advance to your usual diet Interval History: Pt seen and examined at bedside. States breathing is much better. He was able to walk up and down the hospital hallway this morning Hospital course: Mr. Yoder is a 67 year old male with hx of COPD, idiopathic pulmonary fibrosis , GERD, HLD, HTN, and RA. Presented to ED 10/03 with shortness of breath x1 day. He was evaluated for respiratory symptoms 09/22 and recently finished a course of azithromycin for this. During hospitalization he was diagnosed with acute exacerbation of COPD and treated with bronchodilators, oxygen, azithromycin, and IV solumedrol after which he successfully transitioned to 40mg prednisone PO daily prior to discharge. He was evaluated by pulmonology Dr. Bell for idiopathic pulmonary fibrosis which diagnosis is in question. We will assist the patient in obtaining an appointment to see pulmonology as an outpatient for lung biopsy, as well as determination of length of prednisone course. Dr. Bell also started Symbicort in addition to his home medications. Patient's blood pressure moderately elevated during hospital stay and he was started on Lisinopril 10mg, Rx provided, recommend he follow up re: blood pressure with his PCP - Time Spent with Patient Total time spent providing and/or coordinating discharge services: Greater than 30 minutes - Constitutional Vitals: Temp Pulse Resp BP Pulse Ox 97.9 F 82 18 146/94 93 10/08/17 11:21 10/08/17 11:21 10/08/17 11:21 10/08/17 11:21 10/08/17 11:21 General appearance: Present: cooperative, A&O X 3, pleasant, no acute distress, answers questions appropriately - Respiratory Respiratory exam: Present: wheezes (diffuse). Absent: accessory muscle use, respiratory distress - Cardiovascular Cardiovascular exam: Present: RRR, +S1, +S2. Absent: diastolic murmur, gallop, rubs, systolic murmur - GI/Abdominal GI/Abdominal exam: Present: normal bowel sounds, soft, no peritoneal signs. Absent: distended, tenderness - Extremities Exam Extremities exam: Present: warm, radial pulses palpable and symmetrical. Absent : calf tenderness, cyanotic, pedal edema - Neurological Exam Neurological exam: Present: alert, oriented X3, no focal deficits
== END 2017-10-08 15:08 | disposition home or self-care (01) | DRG 192 ==
LOC: EMEROO 10:00 → 2ANU 10:00 → SUATTDRO 11:34 → 2ANU 12:06
PROVIDERS: ADMIT Registered Nurse; ATTEND Internal Medicine

== ENCOUNTER 2020-05-27 16:18 | Inpatient (IN) ==
[2020-05-27] MEDS ORDERED: methylPREDNISolone 125 MG/2 ML VIAL IVP ONE (16:56)
[2020-05-27] MEDS ORDERED: Ipratropium/Albuterol Neb 3 ML IH ONE (16:56)
[2020-05-27] MEDS ORDERED: Azithromycin 500 MG in 0.9 % Sodium Chloride 250 ML IVPB ONE (17:32)
[2020-05-27] MEDS ORDERED: cefTRIAXone 1,000 MG in Water for inj. (sterile) 10 ML IVP ONE (17:32)
[2020-05-27 17:55] LABS: Basophils % 0.1 %; Eosinophils % 0.1 %; Hematocrit 40.8 % (37.5-50.1); Hemoglobin 13.1 g/dL (12.9-16.9); Immature Granulocytes % 0.7 % (0-4); Lymphocytes # 0.9 K/mcL (0.6-4.6); Lymphocytes % 5.4 %; Mean Corpuscular HGB Conc 32.1 g/dL (31.6-35.5); Mean Corpuscular Hemoglobin 29.5 pg (28.0-33.3); Mean Corpuscular Volume 91.9 fL (83.0-100.0); Mean Platelet Volume 10.4 fL (9.4-12.4); Monocytes # 1.3 K/mcL (0.0-1.3); Monocytes % 7.8 %; Neutrophils # 14.2 K/mcL (1.6-8.9); Platelet Count 217 K/mcL (140-400); Red Blood Count 4.44 M/mcL (4.19-5.50); Red Cell Distribution Width 12.6 % (11.5-14.5); Segmented Neutrophils % 85.9 %; White Blood Count 16.5 K/mcL (4.3-11.1)
[2020-05-27 18:00] LABS: BUN/Creatinine Ratio 18 (6-26); Blood Urea Nitrogen 18 mg/dL (8-23); Calcium 9.2 mg/dL (8.6-10.3); Carbon Dioxide 27 mEq/L (23-29); Chloride 100 mEq/L (98-107); Glucose 96 mg/dL (70-105); Osmolality,Calculated 282 (280-300); Potassium 3.8 mEq/L (3.5-5.1); Sodium 135 mEq/L (136-145); Troponin I < 0.03 ng/mL (< 0.04); eGFR For African Americans > 60 (> 60); eGFR For Non-African Americans > 60 (> 60)
[2020-05-27] MEDS ORDERED: Tiotropium 18 MCG inhalation IH ONE (18:00)
[2020-05-27] MEDS ORDERED: methylPREDNISolone 125 MG/2 ML VIAL ONE (18:08)
[2020-05-27] MEDS ORDERED: Azithromycin 500 MG VIAL ONE (18:08)
[2020-05-27] MEDS ORDERED: CefTRIAXone 1,000 MG VIAL ONE (18:09)
[2020-05-27] MEDS ORDERED: Water for inj. (sterile) 20 ML IV ONE (18:09)
[2020-05-27] MEDS ORDERED: 0.9 % Sodium Chloride 250 ML ONE (18:09)
[2020-05-27] MEDS ORDERED: 0.9 % Sodium Chloride 1,000 ML IVC SCH (20:15)
[2020-05-27] MEDS ORDERED: Ondansetron 4 MG/2 ML VIAL IVP PRN (20:15)
[2020-05-27] MEDS ORDERED: Naloxone 0.4 MG/ML INJ IVP PRN (20:15)
[2020-05-27] MEDS ORDERED: Vancomycin 1,750 MG/517.5 ML IV.SOLN IVPB ONE (22:00)
[2020-05-27] MEDS: Ipratropium 1 PUFF INHALER IH SCH (23:25)
[2020-05-27] MEDS: MethylPREDNISolone 40 MG/ML VIAL IVP SCH (23:52)
[2020-05-27] MEDS: *HR* Heparin 5,000 UNIT/ML VIAL SQ SCH (23:52)
[2020-05-28] MEDS ORDERED: Piperacillin/Tazobactam 3.375 GM in 0.9 % Sodium Chloride Mini Bag 100 ML IVPB SCH
[2020-05-28] MEDS: Ipratropium 1 PUFF INHALER IH SCH ×6 (04:24→23:54)
[2020-05-28] MEDS: MethylPREDNISolone 40 MG/ML VIAL IVP SCH ×3 (05:40→17:13)
[2020-05-28] MEDS: *HR* Heparin 5,000 UNIT/ML VIAL SQ SCH ×3 (05:40→21:56)
[2020-05-28 06:32] LABS: Basophils % 0.1 %; Hematocrit 40.2 % (37.5-50.1); Hemoglobin 12.9 g/dL (12.9-16.9); Immature Granulocytes % 0.7 % (0-4); Lymphocytes # 0.3 K/mcL (0.6-4.6); Lymphocytes % 3.7 %; Mean Corpuscular HGB Conc 32.1 g/dL (31.6-35.5); Mean Corpuscular Hemoglobin 29.8 pg (28.0-33.3); Mean Corpuscular Volume 92.8 fL (83.0-100.0); Mean Platelet Volume 10.3 fL (9.4-12.4); Monocytes # 0.2 K/mcL (0.0-1.3); Monocytes % 1.7 %; Neutrophils # 8.1 K/mcL (1.6-8.9); Platelet Count 192 K/mcL (140-400); Red Blood Count 4.33 M/mcL (4.19-5.50); Red Cell Distribution Width 12.4 % (11.5-14.5); Segmented Neutrophils % 93.8 %; White Blood Count 8.7 K/mcL (4.3-11.1)
[2020-05-28 06:45] LABS: Activated Partial Thrombo Time 24.3 Seconds (26.0-36.0); Prothrombin Time 11.3 Seconds (9.4-12.1)
[2020-05-28 07:18] LABS: BUN/Creatinine Ratio 23 (6-26); Blood Urea Nitrogen 18 mg/dL (8-23); Calcium 8.6 mg/dL (8.6-10.3); Carbon Dioxide 25 mEq/L (23-29); Chloride 103 mEq/L (98-107); Glucose 124 mg/dL (70-105); Osmolality,Calculated 285 (280-300); Potassium 4.1 mEq/L (3.5-5.1); Sodium 136 mEq/L (136-145); eGFR For African Americans > 60 (> 60); eGFR For Non-African Americans > 60 (> 60)
[2020-05-28] MEDS: amLODIPine 5 MG TABLET PO SCH (07:55)
[2020-05-28] MEDS: lisinopriL 20 MG TABLET PO SCH (07:55)
[2020-05-28] MEDS ORDERED: Doxycycline 100 MG in 0.9 % Sodium Chloride Mini Bag 100 ML IVPB SCH (09:00)
[2020-05-28] MEDS ORDERED: VISINE TEARS DROPS 15 ML BOTH EYES PRN (10:59)
[2020-05-28] MEDS: Acetaminophen 325 MG TABLET PO PRN ×2 (14:46→22:30)
[2020-05-28] MEDS: cefTRIAXone 2,000 MG in Water for inj. (sterile) 20 ML IVP SCH (17:13)
[2020-05-28] MEDS ORDERED: Rosuvastatin Calcium [Crestor] 5 MG PO SCH (18:00)
[2020-05-28] MEDS: Doxycycline 100 MG CAPSULE PO SCH (19:40)
[2020-05-28] MEDS: Budesonide/Formoterol 160/4.5 1 PUFF INH IH SCH (20:27)
[2020-05-28] MEDS ORDERED: Azithromycin 500 MG in 0.9 % Sodium Chloride 250 ML IVPB SCH (21:00)
[2020-05-29] MEDS: MethylPREDNISolone 40 MG/ML VIAL IVP SCH ×3 (01:47→11:58)
[2020-05-29 03:44] LABS: Basophils % 0.1 %; Hematocrit 40.3 % (37.5-50.1); Hemoglobin 12.9 g/dL (12.9-16.9); Immature Granulocytes % 0.5 % (0-4); Lymphocytes # 0.5 K/mcL (0.6-4.6); Lymphocytes % 2.9 %; Mean Corpuscular Hemoglobin 29.6 pg (28.0-33.3); Mean Corpuscular Volume 92.4 fL (83.0-100.0); Mean Platelet Volume 10.8 fL (9.4-12.4); Monocytes # 0.9 K/mcL (0.0-1.3); Neutrophils # 16.7 K/mcL (1.6-8.9); Platelet Count 209 K/mcL (140-400); Red Blood Count 4.36 M/mcL (4.19-5.50); Red Cell Distribution Width 12.6 % (11.5-14.5); Segmented Neutrophils % 91.5 %
[2020-05-29 03:50] LABS: White Blood Count 18.3 K/mcL (4.3-11.1)
[2020-05-29 04:03] LABS: BUN/Creatinine Ratio 33 (6-26); Blood Urea Nitrogen 26 mg/dL (8-23); Carbon Dioxide 24 mEq/L (23-29); Chloride 103 mEq/L (98-107); Glucose 125 mg/dL (70-105); Osmolality,Calculated 286 (280-300); Potassium 4.2 mEq/L (3.5-5.1); Sodium 135 mEq/L (136-145); eGFR For African Americans > 60 (> 60); eGFR For Non-African Americans > 60 (> 60)
[2020-05-29] MEDS: Ipratropium 1 PUFF INHALER IH SCH ×6 (04:08→23:31)
[2020-05-29] MEDS: *HR* Enoxaparin 40 MG/0.4 ML SYRINGE SQ SCH (05:47)
[2020-05-29] MEDS: Budesonide/Formoterol 160/4.5 1 PUFF INH IH SCH ×2 (07:59→20:40)
[2020-05-29] MEDS: Doxycycline 100 MG CAPSULE PO SCH ×2 (08:24→20:27)
[2020-05-29] MEDS: amLODIPine 5 MG TABLET PO SCH (08:24)
[2020-05-29] MEDS: lisinopriL 20 MG TABLET PO SCH (08:25)
[2020-05-29] MEDS: HYDROcodone BIT/Homatropine LQ 5 MG/5 ML UDC PO PRN ×2 (10:27→18:47)
[2020-05-29] MEDS: Acetaminophen 325 MG TABLET PO PRN ×2 (11:58→21:05)
[2020-05-29] MEDS ORDERED: methylPREDNISolone 125 MG/2 ML VIAL IM SCH (18:00)
[2020-05-29] MEDS: cefTRIAXone 2,000 MG in Water for inj. (sterile) 20 ML IVP SCH (18:35)
[2020-05-29] MEDS: methylPREDNISolone 125 MG/2 ML VIAL IVP SCH ×2 (18:40→23:41)
[2020-05-29 22:16] LABS: Adenovirus Not Detected (Not Detect); Bordetella Pertussis Not Detected (Not Detect); Chlamydophila pneumoniae Not Detected (Not Detect); Coronavirus 229E Not Detected (Not Detect); Coronavirus HKU1 Not Detected (Not Detect); Coronavirus NL63 Not Detected (Not Detect); Coronavirus OC43 Not Detected (Not Detect); Human Metapneumovirus Not Detected (Not Detect); Human Rhinovirus/Enterovirus Not Detected (Not Detect); Influenza A Subtype 2009 H1 Not Detected (Not Detect); Influenza B Not Detected (Not Detect); Mycoplasma pneumoniae Not Detected (Not Detect); Parainfluenza Virus 1 Not Detected (Not Detect); Parainfluenza Virus 2 Not Detected (Not Detect); Parainfluenza Virus 3 Not Detected (Not Detect); Parainfluenza Virus 4 Not Detected (Not Detect); Respiratory Syncytial Virus Not Detected (Not Detect)
[2020-05-30] MEDS: Ipratropium 1 PUFF INHALER IH SCH ×4 (04:28→16:05)
[2020-05-30] MEDS: methylPREDNISolone 125 MG/2 ML VIAL IVP SCH ×3 (06:01→17:49)
[2020-05-30] MEDS: *HR* Enoxaparin 40 MG/0.4 ML SYRINGE SQ SCH (06:02)
[2020-05-30 07:20] LABS: Basophils % 0.1 %; Hematocrit 40.5 % (37.5-50.1); Hemoglobin 13.1 g/dL (12.9-16.9); Immature Granulocytes % 0.6 % (0-4); Lymphocytes # 0.4 K/mcL (0.6-4.6); Lymphocytes % 2.3 %; Mean Corpuscular HGB Conc 32.3 g/dL (31.6-35.5); Mean Corpuscular Hemoglobin 29.5 pg (28.0-33.3); Mean Corpuscular Volume 91.2 fL (83.0-100.0); Mean Platelet Volume 10.1 fL (9.4-12.4); Monocytes # 0.4 K/mcL (0.0-1.3); Monocytes % 2.5 %; Neutrophils # 15.1 K/mcL (1.6-8.9); Platelet Count 206 K/mcL (140-400); Red Blood Count 4.44 M/mcL (4.19-5.50); Red Cell Distribution Width 12.5 % (11.5-14.5); Segmented Neutrophils % 94.5 %; White Blood Count 15.9 K/mcL (4.3-11.1)
[2020-05-30] MEDS: amLODIPine 5 MG TABLET PO SCH (07:24)
[2020-05-30] MEDS: Doxycycline 100 MG CAPSULE PO SCH ×2 (07:24→20:46)
[2020-05-30] MEDS: lisinopriL 20 MG TABLET PO SCH (07:24)
[2020-05-30 07:38] LABS: BUN/Creatinine Ratio 32 (6-26); Blood Urea Nitrogen 25 mg/dL (8-23); Calcium 8.5 mg/dL (8.6-10.3); Carbon Dioxide 26 mEq/L (23-29); Chloride 103 mEq/L (98-107); Glucose 123 mg/dL (70-105); Osmolality,Calculated 286 (280-300); Potassium 4.1 mEq/L (3.5-5.1); Sodium 135 mEq/L (136-145); eGFR For African Americans > 60 (> 60); eGFR For Non-African Americans > 60 (> 60)
[2020-05-30] MEDS: Budesonide/Formoterol 160/4.5 1 PUFF INH IH SCH ×2 (07:49→20:05)
[2020-05-30] MEDS ORDERED: Furosemide 40 MG/4 ML VIAL IVP ONE (08:31)
[2020-05-30] MEDS: HYDROcodone BIT/Homatropine LQ 5 MG/5 ML UDC PO PRN ×2 (09:24→15:15)
[2020-05-30] MEDS: PrednisoLONE Acetate 1% Opth 5 ML BOTTLE LEFT EYE SCH ×3 (11:33→20:47)
[2020-05-30] MEDS: cefTRIAXone 2,000 MG in Water for inj. (sterile) 20 ML IVP SCH (17:48)
[2020-05-30] MEDS ORDERED: Ipratropium/Albuterol Neb 3 ML ONE (19:58)
[2020-05-30] MEDS: Ipratropium/Albuterol Neb 3 ML IH SCH ×2 (20:05→23:52)
[2020-05-30] MEDS: Acetaminophen 325 MG TABLET PO PRN (20:46)
[2020-05-31] MEDS: methylPREDNISolone 125 MG/2 ML VIAL IVP SCH ×5 (00:12→23:26)
[2020-05-31] MEDS: Ipratropium/Albuterol Neb 3 ML IH SCH ×6 (03:47→23:22)
[2020-05-31] MEDS: *HR* Enoxaparin 40 MG/0.4 ML SYRINGE SQ SCH (05:18)
[2020-05-31 05:48] LABS: Hematocrit 39.4 % (37.5-50.1); Hemoglobin 12.9 g/dL (12.9-16.9); Immature Granulocytes % 0.7 % (0-4); Lymphocytes # 0.2 K/mcL (0.6-4.6); Lymphocytes % 1.7 %; Mean Corpuscular HGB Conc 32.7 g/dL (31.6-35.5); Mean Corpuscular Hemoglobin 30.4 pg (28.0-33.3); Mean Corpuscular Volume 92.9 fL (83.0-100.0); Mean Platelet Volume 10.3 fL (9.4-12.4); Monocytes # 0.4 K/mcL (0.0-1.3); Monocytes % 2.7 %; Neutrophils # 13.1 K/mcL (1.6-8.9); Platelet Count 188 K/mcL (140-400); Red Blood Count 4.24 M/mcL (4.19-5.50); Red Cell Distribution Width 12.6 % (11.5-14.5); Segmented Neutrophils % 94.9 %; White Blood Count 13.8 K/mcL (4.3-11.1)
[2020-05-31 06:12] LABS: BUN/Creatinine Ratio 41 (6-26); Blood Urea Nitrogen 33 mg/dL (8-23); Calcium 8.4 mg/dL (8.6-10.3); Carbon Dioxide 26 mEq/L (23-29); Chloride 103 mEq/L (98-107); Glucose 133 mg/dL (70-105); Osmolality,Calculated 293 (280-300); Sodium 137 mEq/L (136-145); eGFR For African Americans > 60 (> 60); eGFR For Non-African Americans > 60 (> 60)
[2020-05-31] MEDS ORDERED: *HR* FentaNYL (PF) 100 MCG/2 ML VIAL ONE (06:58)
[2020-05-31] MEDS ORDERED: Lidocaine Viscous Oral Soln 15 ML SOLUTION ONE (06:58)
[2020-05-31] MEDS ORDERED: *HR* Midazolam HCl 5 MG/5 ML VIAL IVP ONE ×2 (06:59→07:53)
[2020-05-31] MEDS ORDERED: Albuterol 2.5 MG/3 ML NEBULIZER IH ONE (07:53)
[2020-05-31] MEDS ORDERED: Tetracaine/Benzocaine/Butamben 1 SPRAY AEROSOL MM ONE (07:53)
[2020-05-31] MEDS ORDERED: *HR* FentaNYL (PF) 100 MCG/2 ML VIAL IVP ONE (07:53)
[2020-05-31] MEDS ORDERED: *HR* EPINEPHrine 1 MG/10 ML SYRINGE INTRATRACH PRN (07:53)
[2020-05-31] MEDS ORDERED: 0.9 % Sodium Chloride 1,000 ML IVC SCH (08:00)
[2020-05-31] MEDS ORDERED: Albuterol 2.5 MG/3 ML NEBULIZER ONE (08:07)
[2020-05-31] MEDS: PrednisoLONE Acetate 1% Opth 5 ML BOTTLE LEFT EYE SCH ×3 (08:38→20:47)
[2020-05-31] MEDS: Furosemide 40 MG/4 ML VIAL IVP SCH (08:38)
[2020-05-31] MEDS: Budesonide/Formoterol 160/4.5 1 PUFF INH IH SCH ×2 (10:52→19:56)
[2020-05-31] MEDS: amLODIPine 5 MG TABLET PO SCH (11:03)
[2020-05-31] MEDS: Doxycycline 100 MG CAPSULE PO SCH ×2 (11:03→20:47)
[2020-05-31] MEDS: lisinopriL 20 MG TABLET PO SCH (11:03)
[2020-05-31] MEDS: polyethylene glycoL 3350 17 GM POWD.PACK PO SCH (12:01)
[2020-05-31 13:23] LABS: Appearance of Body Fluid Slightly Hazy (Clear); Volume of Body Fluid 13 mL
[2020-05-31] MEDS: Acetaminophen 325 MG TABLET PO PRN (17:06)
[2020-05-31] MEDS: cefTRIAXone 2,000 MG in Water for inj. (sterile) 20 ML IVP SCH (17:38)
[2020-06-01] MEDS: Ipratropium/Albuterol Neb 3 ML IH SCH ×6 (03:17→23:14)
[2020-06-01] MEDS: Acetaminophen 325 MG TABLET PO PRN ×3 (03:56→21:11)
[2020-06-01 05:02] LABS: Basophils % 0.1 %; Hematocrit 41.1 % (37.5-50.1); Hemoglobin 13.6 g/dL (12.9-16.9); Immature Granulocytes % 0.8 % (0-4); Lymphocytes # 0.3 K/mcL (0.6-4.6); Lymphocytes % 1.7 %; Mean Corpuscular HGB Conc 33.1 g/dL (31.6-35.5); Mean Corpuscular Hemoglobin 30.4 pg (28.0-33.3); Mean Corpuscular Volume 91.9 fL (83.0-100.0); Mean Platelet Volume 10.6 fL (9.4-12.4); Monocytes # 0.6 K/mcL (0.0-1.3); Monocytes % 3.7 %; Neutrophils # 14.7 K/mcL (1.6-8.9); Platelet Count 210 K/mcL (140-400); Red Blood Count 4.47 M/mcL (4.19-5.50); Red Cell Distribution Width 12.6 % (11.5-14.5); Segmented Neutrophils % 93.7 %; White Blood Count 15.6 K/mcL (4.3-11.1)
[2020-06-01 05:18] LABS: BUN/Creatinine Ratio 38 (6-26); Blood Urea Nitrogen 33 mg/dL (8-23); Calcium 8.7 mg/dL (8.6-10.3); Carbon Dioxide 28 mEq/L (23-29); Chloride 101 mEq/L (98-107); Glucose 134 mg/dL (70-105); Osmolality,Calculated 291 (280-300); Potassium 4.1 mEq/L (3.5-5.1); Sodium 136 mEq/L (136-145); eGFR For African Americans > 60 (> 60); eGFR For Non-African Americans > 60 (> 60)
[2020-06-01] MEDS: methylPREDNISolone 125 MG/2 ML VIAL IVP SCH ×3 (05:42→19:34)
[2020-06-01] MEDS: *HR* Enoxaparin 40 MG/0.4 ML SYRINGE SQ SCH (05:43)
[2020-06-01] MEDS: Budesonide/Formoterol 160/4.5 1 PUFF INH IH SCH ×2 (07:35→19:59)
[2020-06-01] MEDS: lisinopriL 20 MG TABLET PO SCH (07:38)
[2020-06-01] MEDS: Doxycycline 100 MG CAPSULE PO SCH ×2 (07:38→19:35)
[2020-06-01] MEDS: amLODIPine 5 MG TABLET PO SCH (07:39)
[2020-06-01] MEDS: Furosemide 40 MG/4 ML VIAL IVP SCH (07:39)
[2020-06-01] MEDS: polyethylene glycoL 3350 17 GM POWD.PACK PO SCH (07:39)
[2020-06-01] MEDS: PrednisoLONE Acetate 1% Opth 5 ML BOTTLE LEFT EYE SCH ×3 (07:39→19:35)
[2020-06-01] MEDS: cefTRIAXone 2,000 MG in Water for inj. (sterile) 20 ML IVP SCH (16:05)
[2020-06-01] MEDS ORDERED: Furosemide 20 MG/2 ML VIAL IVP SCH (18:00)
[2020-06-02 02:06] LABS: Basophils % 0.1 %; Hematocrit 38.3 % (37.5-50.1); Hemoglobin 12.5 g/dL (12.9-16.9); Immature Granulocytes % 0.8 % (0-4); Lymphocytes # 0.2 K/mcL (0.6-4.6); Lymphocytes % 1.3 %; Mean Corpuscular HGB Conc 32.6 g/dL (31.6-35.5); Mean Corpuscular Hemoglobin 30.2 pg (28.0-33.3); Mean Corpuscular Volume 92.5 fL (83.0-100.0); Mean Platelet Volume 10.7 fL (9.4-12.4); Monocytes # 0.5 K/mcL (0.0-1.3); Monocytes % 3.9 %; Neutrophils # 11.4 K/mcL (1.6-8.9); Platelet Count 159 K/mcL (140-400); Red Blood Count 4.14 M/mcL (4.19-5.50); Red Cell Distribution Width 12.5 % (11.5-14.5); Segmented Neutrophils % 93.9 %; White Blood Count 12.1 K/mcL (4.3-11.1)
[2020-06-02 02:22] LABS: BUN/Creatinine Ratio 42 (6-26); Blood Urea Nitrogen 35 mg/dL (8-23); Calcium 7.9 mg/dL (8.6-10.3); Carbon Dioxide 26 mEq/L (23-29); Chloride 100 mEq/L (98-107); Glucose 161 mg/dL (70-105); Osmolality,Calculated 287 (280-300); Potassium 3.9 mEq/L (3.5-5.1); Sodium 133 mEq/L (136-145); eGFR For African Americans > 60 (> 60); eGFR For Non-African Americans > 60 (> 60)
[2020-06-02 02:56] LABS: Platelet Estimate Normal (Normal)
[2020-06-02] MEDS: Ipratropium/Albuterol Neb 3 ML IH SCH ×6 (03:37→23:35)
[2020-06-02] MEDS: Acetaminophen 325 MG TABLET PO PRN ×3 (03:45→17:24)
[2020-06-02] MEDS: methylPREDNISolone 125 MG/2 ML VIAL IVP SCH ×3 (03:45→18:27)
[2020-06-02] MEDS: *HR* Enoxaparin 40 MG/0.4 ML SYRINGE SQ SCH (06:26)
[2020-06-02] MEDS: Budesonide/Formoterol 160/4.5 1 PUFF INH IH SCH ×2 (07:22→19:43)
[2020-06-02] MEDS: amLODIPine 5 MG TABLET PO SCH (08:15)
[2020-06-02] MEDS: PrednisoLONE Acetate 1% Opth 5 ML BOTTLE LEFT EYE SCH ×3 (08:15→20:11)
[2020-06-02] MEDS: lisinopriL 20 MG TABLET PO SCH (08:15)
[2020-06-02] MEDS: Furosemide 40 MG/4 ML VIAL IVP SCH (08:15)
[2020-06-02] MEDS: Doxycycline 100 MG CAPSULE PO SCH ×2 (08:15→20:11)
[2020-06-02] MEDS: polyethylene glycoL 3350 17 GM POWD.PACK PO SCH (08:15)
[2020-06-02 15:09] LABS: Influenza A PCR Body Fluid NOT DETECTED; Influenza B PCR Body Fluid NOT DETECTED; RVP Body Fluid Source BAL
[2020-06-02] MEDS: cefTRIAXone 2,000 MG in Water for inj. (sterile) 20 ML IVP SCH (17:19)
[2020-06-02] MEDS ORDERED: Furosemide 40 MG/4 ML VIAL IVP SCH (17:30)
[2020-06-02] MEDS ORDERED: Furosemide 20 MG/2 ML VIAL IVP SCH (18:00)
[2020-06-03] MEDS: Acetaminophen 325 MG TABLET PO PRN ×2 (02:32→08:15)
[2020-06-03] MEDS: methylPREDNISolone 125 MG/2 ML VIAL IVP SCH (02:32)
[2020-06-03] MEDS: HYDROcodone BIT/Homatropine LQ 5 MG/5 ML UDC PO PRN (02:41)
[2020-06-03 02:49] LABS: Hematocrit 41.8 % (37.5-50.1); Hemoglobin 13.5 g/dL (12.9-16.9); Mean Corpuscular HGB Conc 32.3 g/dL (31.6-35.5); Mean Corpuscular Hemoglobin 29.4 pg (28.0-33.3); Mean Corpuscular Volume 91.1 fL (83.0-100.0); Mean Platelet Volume 10.8 fL (9.4-12.4); Monocytes # 0.5 K/mcL (0.0-1.3); Platelet Count 194 K/mcL (140-400); Red Blood Count 4.59 M/mcL (4.19-5.50); Red Cell Distribution Width 12.6 % (11.5-14.5); White Blood Count 13.3 K/mcL (4.3-11.1)
[2020-06-03 03:06] LABS: BUN/Creatinine Ratio 46 (6-26); Blood Urea Nitrogen 37 mg/dL (8-23); Calcium 8.6 mg/dL (8.6-10.3); Carbon Dioxide 27 mEq/L (23-29); Chloride 98 mEq/L (98-107); Glucose 166 mg/dL (70-105); Osmolality,Calculated 290 (280-300); Potassium 3.9 mEq/L (3.5-5.1); Sodium 134 mEq/L (136-145); eGFR For African Americans > 60 (> 60); eGFR For Non-African Americans > 60 (> 60)
[2020-06-03 03:24] LABS: Lymphocytes # 0.3 K/mcL (0.6-4.6); Neutrophils # 12.5 K/mcL (1.6-8.9); Platelet Estimate Normal (Normal)
[2020-06-03] MEDS: Ipratropium/Albuterol Neb 3 ML IH SCH ×6 (03:32→23:27)
[2020-06-03] MEDS: *HR* Enoxaparin 40 MG/0.4 ML SYRINGE SQ SCH (05:40)
[2020-06-03] MEDS: Budesonide/Formoterol 160/4.5 1 PUFF INH IH SCH ×2 (07:33→20:03)
[2020-06-03] MEDS: predniSONE 20 MG TABLET PO SCH (08:14)
[2020-06-03] MEDS: Doxycycline 100 MG CAPSULE PO SCH ×2 (08:14→20:28)
[2020-06-03] MEDS: lisinopriL 20 MG TABLET PO SCH (08:14)
[2020-06-03] MEDS: amLODIPine 5 MG TABLET PO SCH (08:15)
[2020-06-03] MEDS: polyethylene glycoL 3350 17 GM POWD.PACK PO SCH (08:15)
[2020-06-03] MEDS: Furosemide 40 MG TABLET PO SCH ×2 (08:15→17:28)
[2020-06-03] MEDS: PrednisoLONE Acetate 1% Opth 5 ML BOTTLE LEFT EYE SCH ×3 (08:16→20:28)
[2020-06-03 09:37] LABS: RSV PCR Body Fluid NOT DETECTED
[2020-06-03] MEDS ORDERED: Perflutren Lipid Microsphere 1.3 ML in 0.9 % Sodium Chloride 8.7 ML IVP PRN (12:51)
[2020-06-03] MEDS: Cefdinir 300 MG CAPSULE PO SCH (20:28)
[2020-06-04] MEDS: HYDROcodone BIT/Homatropine LQ 5 MG/5 ML UDC PO PRN ×2 (00:18→06:58)
[2020-06-04] MEDS: Ipratropium/Albuterol Neb 3 ML IH SCH ×3 (03:28→11:00)
[2020-06-04] MEDS: *HR* Enoxaparin 40 MG/0.4 ML SYRINGE SQ SCH (05:51)
[2020-06-04 06:53] VITALS: BP 154/84
[2020-06-04] MEDS: Budesonide/Formoterol 160/4.5 1 PUFF INH IH SCH (07:20)
[2020-06-04] MEDS: Doxycycline 100 MG CAPSULE PO SCH (07:24)
[2020-06-04] MEDS: predniSONE 20 MG TABLET PO SCH (07:25)
[2020-06-04] MEDS: amLODIPine 5 MG TABLET PO SCH (07:25)
[2020-06-04] MEDS: polyethylene glycoL 3350 17 GM POWD.PACK PO SCH (07:25)
[2020-06-04] MEDS: Furosemide 40 MG TABLET PO SCH (07:25)
[2020-06-04] MEDS: PrednisoLONE Acetate 1% Opth 5 ML BOTTLE LEFT EYE SCH (07:25)
[2020-06-04] MEDS: lisinopriL 20 MG TABLET PO SCH (07:25)
[2020-06-04] MEDS: Cefdinir 300 MG CAPSULE PO SCH (07:25)
[2020-06-04] MEDS ORDERED: VISINE TEARS DROPS 15 ML BOTH EYES PRN (13:06)
== END 2020-06-04 13:06 | disposition home or self-care (01) | DRG 196 ==
LOC: 2NENU 16:18 → EMEROOARM 16:18 → SUATTDRO 20:15 → 2NENU 20:48 → SUATTDRO 05-29 12:25 → 2ANU 05-29 22:52
PROVIDERS: ADMIT Student in an Organized Health Care Education/Training Program; ATTEND Internal Medicine

== ENCOUNTER 2020-06-11 10:40 | Observation (INO) ==
[2020-06-11] MEDS ORDERED: methylPREDNISolone 125 MG/2 ML VIAL IVP ONE (11:14)
[2020-06-11 11:19] LABS: Basophils % 0.1 %; Eosinophils % 0.1 %; Hematocrit 41.5 % (37.5-50.1); Hemoglobin 13.5 g/dL (12.9-16.9); Lymphocytes % 1.8 %; Mean Corpuscular HGB Conc 32.5 g/dL (31.6-35.5); Mean Corpuscular Hemoglobin 29.3 pg (28.0-33.3); Mean Platelet Volume 10.4 fL (9.4-12.4); Monocytes % 3.9 %; Neutrophils # 23.2 K/mcL (1.6-8.9); Platelet Count 177 K/mcL (140-400); Red Blood Count 4.61 M/mcL (4.19-5.50); Red Cell Distribution Width 12.8 % (11.5-14.5); Segmented Neutrophils % 93.1 %; White Blood Count 24.9 K/mcL (4.3-11.1)
[2020-06-11 11:23] LABS: Lymphocytes # 0.5 K/mcL (0.6-4.6)
[2020-06-11 11:24] LABS: Platelet Estimate Normal (Normal)
[2020-06-11 11:39] LABS: BUN/Creatinine Ratio 21 (6-26); Blood Urea Nitrogen 20 mg/dL (8-23); Calcium 8.6 mg/dL (8.6-10.3); Carbon Dioxide 26 mEq/L (23-29); Chloride 98 mEq/L (98-107); Glucose 157 mg/dL (70-105); Osmolality,Calculated 282 (280-300); Potassium 3.7 mEq/L (3.5-5.1); Sodium 133 mEq/L (136-145); Troponin I < 0.03 ng/mL (< 0.04); eGFR For African Americans > 60 (> 60); eGFR For Non-African Americans > 60 (> 60)
[2020-06-11] MEDS ORDERED: Isovue-370 500 ML BOTTLE IVP ONE (12:47)
[2020-06-11] MEDS ORDERED: Piperacillin/Tazobactam 3.375 GM in 0.9 % Sodium Chloride Mini Bag 100 ML IVPB ONE (16:19)
[2020-06-11] MEDS ORDERED: Naloxone 0.4 MG/ML INJ IVP PRN (16:33)
[2020-06-11] MEDS ORDERED: Ondansetron 4 MG/2 ML VIAL IVP PRN (16:33)
[2020-06-11 17:37] LABS: Adenovirus Not Detected (Not Detect); Coronavirus 229E Not Detected (Not Detect); Coronavirus HKU1 Not Detected (Not Detect); Coronavirus NL63 Not Detected (Not Detect); Coronavirus OC43 Not Detected (Not Detect)
[2020-06-11 17:39] LABS: Bordetella Pertussis Not Detected (Not Detect); Chlamydophila pneumoniae Not Detected (Not Detect); Human Metapneumovirus Not Detected (Not Detect); Human Rhinovirus/Enterovirus Not Detected (Not Detect); Influenza A Subtype 2009 H1 Not Detected (Not Detect); Influenza B Not Detected (Not Detect); Mycoplasma pneumoniae Not Detected (Not Detect); Parainfluenza Virus 1 Not Detected (Not Detect); Parainfluenza Virus 2 Not Detected (Not Detect); Parainfluenza Virus 3 Not Detected (Not Detect); Parainfluenza Virus 4 Not Detected (Not Detect); Respiratory Syncytial Virus Not Detected (Not Detect); SARS-CoV-2 Not Detected (Not Detect)
[2020-06-11] MEDS: *HR* Heparin 5,000 UNIT/ML VIAL SQ SCH (18:27)
[2020-06-11] MEDS: levoFLOXacin 750 MG/150 ML 750 MG/150 ML BAG IVPB SCH (18:27)
[2020-06-11] MEDS: Vancomycin 1,250 MG/262.5 ML IV.SOLN IVPB SCH (19:46)
[2020-06-11] MEDS: Budesonide/Formoterol 160/4.5 1 PUFF INH IH SCH (19:52)
[2020-06-11] MEDS: Ipratropium/Albuterol Neb 3 ML IH SCH ×2 (19:52→23:36)
[2020-06-11] MEDS: methylPREDNISolone 125 MG/2 ML VIAL IVP SCH (19:54)
[2020-06-12] MEDS ORDERED: Piperacillin/Tazobactam 3.375 GM in 0.9 % Sodium Chloride Mini Bag 100 ML IVPB SCH
[2020-06-12] MEDS: methylPREDNISolone 125 MG/2 ML VIAL IVP SCH ×3 (03:34→21:10)
[2020-06-12] MEDS: Ipratropium/Albuterol Neb 3 ML IH SCH ×5 (03:37→19:44)
[2020-06-12] MEDS: Vancomycin 1,250 MG/262.5 ML IV.SOLN IVPB SCH ×2 (06:01→17:39)
[2020-06-12 06:03] LABS: Hematocrit 39.5 % (37.5-50.1); Hemoglobin 12.6 g/dL (12.9-16.9); Immature Granulocytes % 0.9 % (0-4); Lymphocytes # 0.2 K/mcL (0.6-4.6); Lymphocytes % 2.1 %; Mean Corpuscular HGB Conc 31.9 g/dL (31.6-35.5); Mean Corpuscular Volume 90.8 fL (83.0-100.0); Mean Platelet Volume 10.3 fL (9.4-12.4); Monocytes # 0.2 K/mcL (0.0-1.3); Monocytes % 2.5 %; Neutrophils # 8.9 K/mcL (1.6-8.9); Platelet Count 160 K/mcL (140-400); Red Blood Count 4.35 M/mcL (4.19-5.50); Red Cell Distribution Width 12.7 % (11.5-14.5); Segmented Neutrophils % 94.5 %
[2020-06-12 06:05] LABS: White Blood Count 9.4 K/mcL (4.3-11.1)
[2020-06-12] MEDS: *HR* Heparin 5,000 UNIT/ML VIAL SQ SCH ×2 (06:06→17:39)
[2020-06-12 06:18] LABS: BUN/Creatinine Ratio 30 (6-26); Blood Urea Nitrogen 28 mg/dL (8-23); Calcium 8.4 mg/dL (8.6-10.3); Carbon Dioxide 28 mEq/L (23-29); Chloride 98 mEq/L (98-107); Glucose 128 mg/dL (70-105); Magnesium 2.1 mg/dL (1.6-2.6); Osmolality,Calculated 283 (280-300); Potassium 4.4 mEq/L (3.5-5.1); Sodium 133 mEq/L (136-145); eGFR For African Americans > 60 (> 60); eGFR For Non-African Americans > 60 (> 60)
[2020-06-12] MEDS: Budesonide/Formoterol 160/4.5 1 PUFF INH IH SCH ×2 (07:25→19:44)
[2020-06-12] MEDS: Furosemide 40 MG TABLET PO SCH (08:39)
[2020-06-12] MEDS: levoFLOXacin 750 MG/150 ML 750 MG/150 ML BAG IVPB SCH (08:40)
[2020-06-12] MEDS: Acetaminophen 325 MG TABLET PO PRN (17:38)
[2020-06-12] MEDS: PrednisoLONE Acetate 1% Opth 5 ML BOTTLE LEFT EYE SCH (21:10)
[2020-06-13] MEDS: Ipratropium/Albuterol Neb 3 ML IH SCH ×7 (03:12→23:39)
[2020-06-13] MEDS: methylPREDNISolone 125 MG/2 ML VIAL IVP SCH ×3 (04:34→19:58)
[2020-06-13 06:14] LABS: Basophils % 0.1 %; Hematocrit 39.7 % (37.5-50.1); Hemoglobin 12.9 g/dL (12.9-16.9); Immature Granulocytes % 0.7 % (0-4); Lymphocytes # 0.2 K/mcL (0.6-4.6); Lymphocytes % 1.7 %; Mean Corpuscular HGB Conc 32.5 g/dL (31.6-35.5); Mean Corpuscular Hemoglobin 29.7 pg (28.0-33.3); Mean Corpuscular Volume 91.5 fL (83.0-100.0); Mean Platelet Volume 10.4 fL (9.4-12.4); Monocytes # 0.4 K/mcL (0.0-1.3); Monocytes % 3.2 %; Neutrophils # 11.6 K/mcL (1.6-8.9); Platelet Count 140 K/mcL (140-400); Red Blood Count 4.34 M/mcL (4.19-5.50); Red Cell Distribution Width 12.7 % (11.5-14.5); Segmented Neutrophils % 94.3 %; White Blood Count 12.3 K/mcL (4.3-11.1)
[2020-06-13] MEDS: *HR* Heparin 5,000 UNIT/ML VIAL SQ SCH ×2 (06:27→17:27)
[2020-06-13 06:31] LABS: BUN/Creatinine Ratio 30 (6-26); Blood Urea Nitrogen 25 mg/dL (8-23); Calcium 8.3 mg/dL (8.6-10.3); Carbon Dioxide 30 mEq/L (23-29); Chloride 99 mEq/L (98-107); Glucose 127 mg/dL (70-105); Osmolality,Calculated 282 (280-300); Potassium 4.4 mEq/L (3.5-5.1); Sodium 133 mEq/L (136-145); Vancomycin,Trough 9 mcg/mL (5-10); eGFR For African Americans > 60 (> 60); eGFR For Non-African Americans > 60 (> 60)
[2020-06-13] MEDS ORDERED: Vancomycin 1,500 MG/265 ML IV.SOLN IVPB SCH (07:00)
[2020-06-13] MEDS: Budesonide/Formoterol 160/4.5 1 PUFF INH IH SCH ×2 (07:39→19:48)
[2020-06-13] MEDS: Vancomycin 1,250 MG/262.5 ML IV.SOLN IVPB SCH (08:49)
[2020-06-13] MEDS: Furosemide 40 MG TABLET PO SCH (08:55)
[2020-06-13] MEDS: levoFLOXacin 750 MG/150 ML 750 MG/150 ML BAG IVPB SCH (08:56)
[2020-06-13] MEDS: PrednisoLONE Acetate 1% Opth 5 ML BOTTLE LEFT EYE SCH ×2 (08:57→19:58)
[2020-06-13] MEDS ORDERED: Aminoglycoside Consult 1 EACH MC ONE (17:19)
[2020-06-13] MEDS: Acetaminophen 325 MG TABLET PO PRN (18:07)
[2020-06-14] MEDS: Ipratropium/Albuterol Neb 3 ML IH SCH ×6 (03:18→23:19)
[2020-06-14] MEDS: methylPREDNISolone 125 MG/2 ML VIAL IVP SCH ×3 (05:11→21:10)
[2020-06-14] MEDS: *HR* Heparin 5,000 UNIT/ML VIAL SQ SCH ×2 (05:12→16:48)
[2020-06-14 07:33] LABS: Basophils % 0.1 %; Hematocrit 38.1 % (37.5-50.1); Hemoglobin 12.5 g/dL (12.9-16.9); Immature Granulocytes % 0.8 % (0-4); Lymphocytes # 0.3 K/mcL (0.6-4.6); Lymphocytes % 2.1 %; Mean Corpuscular HGB Conc 32.8 g/dL (31.6-35.5); Mean Corpuscular Hemoglobin 30.3 pg (28.0-33.3); Mean Corpuscular Volume 92.5 fL (83.0-100.0); Mean Platelet Volume 10.5 fL (9.4-12.4); Monocytes # 0.5 K/mcL (0.0-1.3); Monocytes % 4.3 %; Neutrophils # 10.9 K/mcL (1.6-8.9); Platelet Count 137 K/mcL (140-400); Red Blood Count 4.12 M/mcL (4.19-5.50); Red Cell Distribution Width 12.7 % (11.5-14.5); Segmented Neutrophils % 92.7 %; White Blood Count 11.8 K/mcL (4.3-11.1)
[2020-06-14] MEDS: Budesonide/Formoterol 160/4.5 1 PUFF INH IH SCH ×2 (07:50→19:18)
[2020-06-14 07:51] LABS: BUN/Creatinine Ratio 35 (6-26); Blood Urea Nitrogen 27 mg/dL (8-23); Calcium 7.9 mg/dL (8.6-10.3); Carbon Dioxide 28 mEq/L (23-29); Chloride 101 mEq/L (98-107); Glucose 110 mg/dL (70-105); Osmolality,Calculated 286 (280-300); Potassium 4.2 mEq/L (3.5-5.1); Sodium 135 mEq/L (136-145); eGFR For African Americans > 60 (> 60); eGFR For Non-African Americans > 60 (> 60)
[2020-06-14] MEDS: levoFLOXacin 750 MG/150 ML 750 MG/150 ML BAG IVPB SCH (08:30)
[2020-06-14] MEDS: lisinopriL 20 MG TABLET PO SCH (08:30)
[2020-06-14] MEDS: Furosemide 40 MG TABLET PO SCH (08:30)
[2020-06-14] MEDS: PrednisoLONE Acetate 1% Opth 5 ML BOTTLE LEFT EYE SCH ×2 (08:31→21:11)
[2020-06-14] MEDS ORDERED: NON-FORMULARY MEDICATION 1 EACH EACH (Amlodipine Besylate/Benazepril [Amlodipine-Benazepri PO SCH (09:00)
[2020-06-14] MEDS: amLODIPine 5 MG TABLET PO SCH (09:53)
[2020-06-14] MEDS: Acetaminophen 325 MG TABLET PO PRN (12:26)
[2020-06-14] MEDS: Artificial Tears SOLN 15 ML BOTTLE BOTH EYES PRN (16:49)
[2020-06-15] MEDS: Ipratropium/Albuterol Neb 3 ML IH SCH ×3 (03:07→11:24)
[2020-06-15] MEDS: Artificial Tears SOLN 15 ML BOTTLE BOTH EYES PRN (03:28)
[2020-06-15] MEDS: methylPREDNISolone 125 MG/2 ML VIAL IVP SCH ×2 (03:29→11:08)
[2020-06-15] MEDS: Acetaminophen 325 MG TABLET PO PRN (05:56)
[2020-06-15] MEDS: *HR* Heparin 5,000 UNIT/ML VIAL SQ SCH (05:56)
[2020-06-15] MEDS: Budesonide/Formoterol 160/4.5 1 PUFF INH IH SCH (07:26)
[2020-06-15] MEDS: Furosemide 40 MG TABLET PO SCH (07:51)
[2020-06-15] MEDS: amLODIPine 5 MG TABLET PO SCH (07:51)
[2020-06-15] MEDS: lisinopriL 20 MG TABLET PO SCH (07:53)
[2020-06-15] MEDS: levoFLOXacin 750 MG/150 ML 750 MG/150 ML BAG IVPB SCH (07:53)
[2020-06-15 10:58] LABS: Hematocrit 42.8 % (37.5-50.1); Hemoglobin 13.7 g/dL (12.9-16.9); Mean Corpuscular Volume 90.7 fL (83.0-100.0); Mean Platelet Volume 10.3 fL (9.4-12.4); Platelet Count 176 K/mcL (140-400); Red Blood Count 4.72 M/mcL (4.19-5.50); Red Cell Distribution Width 12.9 % (11.5-14.5); White Blood Count 14.3 K/mcL (4.3-11.1)
[2020-06-15] MEDS: PrednisoLONE Acetate 1% Opth 5 ML BOTTLE LEFT EYE SCH (11:05)
[2020-06-15 11:18] LABS: BUN/Creatinine Ratio 33 (6-26); Blood Urea Nitrogen 26 mg/dL (8-23); Calcium 8.5 mg/dL (8.6-10.3); Carbon Dioxide 26 mEq/L (23-29); Chloride 100 mEq/L (98-107); Glucose 107 mg/dL (70-105); Osmolality,Calculated 285 (280-300); Sodium 135 mEq/L (136-145); eGFR For African Americans > 60 (> 60); eGFR For Non-African Americans > 60 (> 60)
[2020-06-15 11:37] VITALS: BP 137/80
[2020-06-15 13:19] LABS: Monocytes # 0.6 K/mcL (0.0-1.3); Neutrophils # 13.7 K/mcL (1.6-8.9)
[2020-06-15 13:20] LABS: Platelet Estimate Normal (Normal)
== END 2020-06-15 12:02 | disposition home or self-care (01) ==
LOC: 2ANU 10:40 → EMEROOARM 10:40 → SUATTDRO 17:18 → 2ANU 17:51
PROVIDERS: ADMIT Family Medicine; ATTEND Internal Medicine